=== PATIENT | female | born 1955 | race Caucasian/White ===

== ENCOUNTER → 2018-11-21 | Outpatient (CLI) | payer OTHER ==
--- NOTE | 2018-11-21 11:25 | XR ---
EXAMINATION TYPE: XR chest 2V DATE OF EXAM: 11/21/2018 COMPARISON: 02/02/2012 HISTORY: Monitoring for methotrexate. TECHNIQUE: Frontal and lateral views of the chest are obtained. FINDINGS: There is no focal air space opacity, pleural effusion, or pneumothorax seen. 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 The cardiac silhouette size is within normal limits. The osseous structures are intact. Mild mul tilevel degenerative changes of the spine are noted. IMPRESSION: No acute cardiopulmonary process. Underlying COPD.
== END | disposition home or self-care (01) ==
LOC: RADXRYALE 11:10
PROVIDERS: ATTEND Internal Medicine
DX: J44.9 Chronic obstructive pulmonary disease, unspecified (principal); Z51.81 Encounter for therapeutic drug level monitoring; Z79.899 Other long term (current) drug therapy
CPT/HCPCS: 71046

== ENCOUNTER → 2019-08-03 | Outpatient (CLI) | payer BC | END | disposition home or self-care (01) | LOC: LABWHC1 08:00 | PROVIDERS: ATTEND Internal Medicine | DX: E11.9 Type 2 diabetes mellitus without complications (principal) | CPT/HCPCS: 36415; 82947; 84681 ==

== ENCOUNTER → 2020-06-04 | Day surgery (SDC) | payer BC ==
[2020-06-04 09:44] VITALS: RESP 16
[2020-06-04 10:49] VITALS: BP 132/84; PULSE 74; TEMP 98.6
--- NOTE | 2020-06-04 13:50 | USB ---
EXAMINATION TYPE: US breast aspiration single RT DATE OF EXAM: 06/04/2020 HISTORY: Abnormal breast ultrasound FINDINGS: Maximal barrier technique was utilized. Hand hygiene achieved with soap and water and alco hol-based hand rub. The skin overlying a suitable path to the patient's breast cyst at the subareolar location approximately 10-11 o'clock position was localized with ultrasound and the overlying skin p repped and draped. Ultrasound was utilized with sterile technique. Lidocaine was used for local anes thesia. 18-gauge needle was advanced under ultrasound guidance and aspirated specimen clear fluid 1 c c. Following the procedure, hemostasis achieved and the patient is discharged in stable condition wit hout complication. The lesion did not persist post aspiration. IMPRESSION:STATUS POST ULTRASOUND GUIDED CYST ASPIRATION, without complication. THIS PROCEDURE IS PE RFORMED BY THE UNDERSIGNED.
== END ==
LOC: RADUSWWP 09:32
PROVIDERS: ATTEND Surgery
DX: N60.01 Solitary cyst of right breast (principal)
CPT/HCPCS: 76942; 19000; J2001

== ENCOUNTER → 2020-06-10 | Outpatient (CLI) | payer BC ==
[2020-06-10 19:30] LABS: Hepatitis B Core IgM Non-Reactive (Non-Reactive); Hepatitis B Surface AB- Quant 3.5 mIU/mL; Hepatitis B Surface Antibody Non-Reactive (Non-Reactive); Hepatitis B Surface Antigen Non-Reactive (Non-Reactive); Hepatitis C IgG Antibody Non-Reactive (Non-Reactive)
[2020-06-10 21:03] LABS: Cyclic Citrull Pep IgG Unit 3.2 U/mL; Cyclic Citrullinated Pep IgG POSITIVE (NEGATIVE)
== END | disposition home or self-care (01) ==
LOC: LABWHC1 10:57
PROVIDERS: ATTEND Internal Medicine Rheumatology
DX: M05.79 Rheumatoid arthritis with rheumatoid factor of multiple sites without organ or systems involvement (principal)
CPT/HCPCS: 36415; 86200; 86431; 86480; 86704; 86705; 86706; 86803; 87340

== ENCOUNTER → 2020-06-12 | Outpatient (CLI) | payer BC ==
[2020-06-12 12:01] VITALS: BP 135/81; PULSE 77; RESP 16; TEMP 97.9
--- NOTE | 2020-06-12 12:42 | P.GSHP ---
History of Present Illness H&P Date: 06/12/20 Chief Complaint: Abnormal right breast ultrasound Gloria is a 64-year-old white female seen in consultation for Dr. Hooker regarding a radiographic abnormality in her right breast. She had bilateral screening mammograms performed on [id number] which additional views of the left breast and bilateral ultrasound were recommended. Additional views of the left breast were felt to be incomplete and bilateral ultrasounds were performed. These were performed on [id number]. The left breast ultrasound was negative however the right breast ultrasound revealed a 0.9 x 0.5 cm lesion for which aspiration/[place] [id number]. At that time the patient was noted to have a small cystlike lesion 1 cm fluid was aspirated and it does not appear that this was sent for cytology. No clip was left at this aspiration. The patient does not feel any lumps masses or nodules in either breast. She does not complain of any nipple discharge or pain in her breast. As not had any history of any recent trauma or infection in her breast. She had an ultrasound guided biopsy in the past about 3 years ago and this was a cyst and fluid was removed. 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 Social History: Nicotine: Negative; 1/2 PPD since 17 Alcohol: Twice a year Drugs: Negative - Constitutional Constitutional: Reports sweats - EENT Comment: glaucoma Ears: deny: decreased hearing, tinnitus Ears, nose, mouth and throat: Denies headache, Denies sore throat - Breasts Breasts: bilateral: as per HPI - Cardiovascular Cardiovascular: Denies chest pain, Denies shortness of breath - Respiratory Respiratory: Denies cough, Denies 7 - Gastrointestinal Gastrointestinal: Denies abdominal pain, Denies diarrhea, Denies nausea, Denies vomiting - Genitourinary (Female) Genitourinary: Denies dysuria, Denies hematuria - Menstruation Menstruation: Reports post hysterectomy - Musculoskeletal Musculoskeletal: Reports as per HPI - Integumentary Comment: Sojrins syndrome - Neurological Neurological: Denies numbness, Denies weakness - Psychiatric Psychiatric: Denies anxiety, Denies depression - Endocrine Endocrine: Reports weight change - Hematologic/Lymphatic Comment: none - Allergic/Immunologic Allergic/Immunologic: Reports seasonal allergies Past Medical History Past Medical History: Diabetes Mellitus, Hyperlipidemia, Hypertension, Rheumatoid Arthritis (RA) History of Any Multi-Drug Resistant Organisms: None Reported Past Surgical History: Breast Surgery, Cholecystectomy, Hysterectomy, Orthopedic Surgery Additional Past Surgical History / Comment(s): right breast core biopsy benign, left breast benign excisional biopsy, arthroscopy x2 roz knees, 2 total knees right Past Anesthesia/Blood Transfusion Reactions: Postoperative Nausea & Vomiting (PONV) Past Psychological History: No Psychological Hx Reported Smoking Status: Former smoker Past Alcohol Use History: None Reported Past Drug Use History: None Reported Medications and Allergies Home Medications Medication Instructions Recorded Confirmed Type Atorvastatin [Lipitor] 80 mg PO HS 05/27/20 06/12/20 History Calcium Citrate 500 mg PO DAILY 05/27/20 06/12/20 History Carvedilol [Coreg] 6.25 mg PO BID 05/27/20 06/12/20 History Empagliflozin [Jardiance] 10 mg PO DAILY 05/27/20 06/12/20 History Lisinopril [Zestril] 10 mg PO DAILY 05/27/20 06/12/20 History Multivit-Min/FA/Lycopen/Lutein 1 each PO DAILY 05/27/20 06/12/20 History [Centrum Silver Tablet] Omeprazole 20 mg PO DAILY 05/27/20 06/12/20 History Pioglitazone [Actos] 45 mg PO DAILY 05/27/20 06/12/20 History sitaGLIPtin [Januvia] 100 mg PO DAILY 05/27/20 06/12/20 History Etanercept [Enbrel] 50 mg SQ Q7DAYS 06/12/20 06/12/20 History Allergies Allergy/AdvReac Type Severity Reaction Status Date / Time No Known Allergies Allergy Verified 06/12/20 11:56 Surgical - Exam Vital Signs Temp Pulse Resp BP Pulse Ox 97.9 F 77 16 135/81 97 06/12/20 11:59 06/12/20 11:59 06/12/20 11:59 06/12/20 11:59 06/12/20 11:59 BMI 24.8 - General well developed, well nourished, no distress - Eyes normal ocular movement - ENT no hearing loss, no congestion - Neck no masses, trachea midline - Respiratory normal expansion, normal respiratory effort, clear to percussion, clear to auscultation - Cardiovascular Rhythm: regular Heart Sounds: normal: S1, S2 - Abdomen Abdomen: soft, non tender, bowel sounds, no guarding, no rigid, no rebound - Integumentary normal turgor - Neurologic no disoriented, no combative - Musculoskeletal normal gait, normal posture - Psychiatric oriented to time, oriented to person, oriented to place, speech is normal, memor y intact breast exam: BRA 36A inspection: Grade 2/3 ptosis bilateral Palpation: Bypass: Multiple positional exam fibrocystic changes, mild ecchymosis from prior aspiration no hematoma and no infection no lesions of concern Right axilla: No adenopathy of concern Left breast: Multiple positional exam fibrocystic changes, no dominant masses or nodules of concern Left axilla: No adenopathy of concern Results Mammogram and ultrasound results reviewed Assessment and Plan Assessment: Impression: 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 Repeat right breast mammogram and ultrasound in 6 months with a physician visit at that time 2. We have discussed decreasing caffeine intake 3. Medical management of medical conditions Cc: Dr. Hooker We have discussed causes of fibrocystic breast changes. She is going to try to modiy her life style, decrease caffeine. encounter 40 minutes, > 50% of time in planning and counselling
== END | disposition home or self-care (01) ==
LOC: WWCWWP 11:43
PROVIDERS: ATTEND Surgery
DX: Z53.9 Procedure and treatment not carried out, unspecified reason (principal)

== ENCOUNTER 2020-11-09 12:17 | Emergency (ER) | payer BC ==
[2020-11-09 12:25] VITALS: RESP 18
[2020-11-09] MEDS ORDERED: Acetaminophen-Codeine 300-30mg TAB PO STA (12:39)
--- NOTE | 2020-11-09 12:58 | XR ---
EXAMINATION TYPE: XR pelvis AP view DATE OF EXAM: 11/09/2020 COMPARISON: NONE HISTORY: Pain The osseous structures are intact and the joint spaces are preserved. No acute fracture is seen. Vi sualized bowel gas pattern is nonspecific. Hypertrophic changes of the acetabulum to be associated w ith femoral acetabular impingement. Vascular calcifications in the pelvis. SI joints symmetric. Ostei tis pubis condensans noted. IMPRESSION: 1. No acute fracture.
--- NOTE | 2020-11-09 12:59 | XR ---
EXAMINATION TYPE: XR ankle complete LT DATE OF EXAM: 11/09/2020 COMPARISON: NONE HISTORY: Pain FINDINGS: Three views of the ankle demonstrate the ankle mortise to be intact and symmetric. There is soft tiss ue edema laterally with a nondisplaced fracture of the distal fibula. Tiny calcaneal spur. IMPRESSION: 1. Nondisplaced fracture lateral malleolus.
[2020-11-09] MEDS ORDERED: ACET/COD 300 MG/30 MG STARTER PACK 6 TAB BTL PO STA (13:22)
--- NOTE | 2020-11-09 13:22 | ED ---
Lower Extremity Injury HPI - General Chief Complaint: Extremity Injury, Lower Stated Complaint: Foot injury Time Seen by Provider: 11/09/20 12:33 Source: patient, RN notes reviewed Mode of arrival: wheelchair Limitations: no limitations - History of Present Illness Initial Comments: 64-year-old female presents emergency from chief complaint left ankle and tailbone pain. 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 Patient complains of lateral left ankle pain, fell striking her buttocks and complained the pain. Denies any head injury no loss conscious. - Related Data Home Medications Medication Instructions Recorded Confirmed Atorvastatin [Lipitor] 80 mg PO HS 05/27/20 06/12/20 Calcium Citrate 500 mg PO DAILY 05/27/20 06/12/20 Carvedilol [Coreg] 6.25 mg PO BID 05/27/20 06/12/20 Empagliflozin [Jardiance] 10 mg PO DAILY 05/27/20 06/12/20 Lisinopril [Zestril] 10 mg PO DAILY 05/27/20 06/12/20 Multivit-Min/FA/Lycopen/Lutein 1 each PO DAILY 05/27/20 06/12/20 [Centrum Silver Tablet] Omeprazole 20 mg PO DAILY 05/27/20 06/12/20 Pioglitazone [Actos] 45 mg PO DAILY 05/27/20 06/12/20 sitaGLIPtin [Januvia] 100 mg PO DAILY 05/27/20 06/12/20 Etanercept [Enbrel] 50 mg SQ Q7DAYS 06/12/20 06/12/20 Allergies Allergy/AdvReac Type Severity Reaction Status Date / Time No Known Allergies Allergy Verified 11/09/20 12:22 Review of Systems ROS Statement: Those systems with pertinent positive or pertinent negative responses have been documented in the HPI. ROS Other: All systems not noted in ROS Statement are negative. Past Medical History Past Medical History: Diabetes Mellitus, Hyperlipidemia, Hypertension, Rheumatoid Arthritis (RA) History of Any Multi-Drug Resistant Organisms: None Reported Past Surgical History: Breast Surgery, Cholecystectomy, Hysterectomy, Orthopedic Surgery Additional Past Surgical History / Comment(s): right breast core biopsy benign, left breast benign excisional biopsy, arthroscopy x2 roz knees, 2 total knees right Past Anesthesia/Blood Transfusion Reactions: Postoperative Nausea & Vomiting (PONV) Past Psychological History: No Psychological Hx Reported Smoking Status: Former smoker Past Alcohol Use History: Rare Past Drug Use History: None Reported General Exam Limitations: no limitations General appearance: alert, in no apparent distress Head exam: Present: atraumatic, normocephalic, normal inspection Eye exam: Present: normal appearance, PERRL, EOMI. Absent: scleral icterus, conjunctival injection, periorbital swelling Respiratory exam: Present: normal lung sounds bilaterally. Absent: respiratory distress, wheezes, rales, rhonchi, stridor Cardiovascular Exam: Present: regular rate, normal rhythm, normal heart sounds. Absent: systolic murmur, diastolic murmur, rubs, gallop, clicks Extremities exam: Present: other (Left lateral ankle there is swelling, tenderness palpation, neurovascular intact no foot tenderness no proximal tib- fib tenderness) Back exam: Present: full ROM, tenderness (Tenderness over the lower coccyx region) Neurological exam: Present: alert, oriented X3 Course Vital Signs 11/09/20 12:22 Temperature 97.4 F L Pulse Rate 98 Respiratory 18 Rate Blood Pressure 150/92 O2 Sat by Pulse 98 Oximetry Procedures - Orthopedic Splinting/Casting Injury #1 Side: left Lower Extremity Injury Location: short leg, ankle Lower Extremity Immobilizer: posterior splint, synthetic pre-padded splint Other Orthopedic Equipment: walker Medical Decision Making - Medical Decision Making Patient is a fracture of her left ankle was splinted and will follow-up with her orthopedic physician. Patient does have a walker at home that she will use. Disposition Clinical Impression: Fracture of distal end of left fibula Disposition: HOME SELF-CARE Condition: Stable Instructions (If sedation given, give patient instructions): Ankle Fracture (ED) Additional Instructions: Please return to the Emergency Department if symptoms worsen or any other concerns. Is patient prescribed a controlled substance at d/c from ED?: No Referrals: Toyin Hooker MD [Primary Care Provider] - 1-2 days Nate Barry DPM [Doctor of Osteopathic Medicine] - 1-2 days Time of Disposition: 13:22
[2020-11-09 13:37] VITALS: BP 149/89; PULSE 87; TEMP 97.6
== END 2020-11-09 13:34 | disposition home or self-care (01) ==
LOC: EC 12:17
DX: S82.831A Other fracture of upper and lower end of right fibula, initial encounter for closed fracture (principal); E11.9 Type 2 diabetes mellitus without complications; E78.5 Hyperlipidemia, unspecified; I10 Essential (primary) hypertension; M06.9 Rheumatoid arthritis, unspecified; Z90.49 Acquired absence of other specified parts of digestive tract; Z90.710 Acquired absence of both cervix and uterus; Z87.891 Personal history of nicotine dependence; Z79.84 Long term (current) use of oral hypoglycemic drugs; X50.1XXA Overexertion from prolonged static or awkward postures, initial encounter; Y99.0 Civilian activity done for income or pay
CPT/HCPCS: 29515; 72170; 99283

== ENCOUNTER → 2020-12-15 | Outpatient (CLI) | payer SELFPAY ==
--- NOTE | 2020-12-15 08:40 | USB ---
EXAMINATION TYPE: US breast limited RT DATE OF EXAM: 12/15/2020 COMPARISON: 06/04/2020 CLINICAL HISTORY: R92.8, Abnormal mammogram. Findings: In the right breast retroareolar region, there is a 0.8 x 0.6 x 0.9 cm lobulated anechoic lesion, con sistent with the previous cyst that was previously aspirated. IMPRESSION: No sonographic evidence for malignancy. BI-RADS 2, benign. Recommendation: Patient is due for her bilateral mammogram in March 2021.
--- NOTE | 2020-12-15 08:54 | MM ---
Reason for exam: follow-up at short interval from prior study. Last mammogram was performed 9 years and 8 months ago. History: Patient is postmenopausal. US breast aspiration single RT of the right breast, June 04, 2020. Cancelled Right US Needle Biopsy of the right breast, May 06, 2006. Benign excisional biopsy of the left breast. Took hormonal contraceptives for 1 year beginning at age 21. Took estrogen for 1 year beginning at age 45. Physical Findings: Nurse did not find any significant physical abnormalities on exam. MG Diagnostic Mammo RT w CAD CC and MLO view(s) were taken of the right breast. Prior study comparison: April 23, 2020, mammogram. July 13, 2018, mammogram. There are scattered fibroglandular densities. Right asymmetries. No change. Right biopsy clip. These results were verbally communicated with the patient and result sheet given to the patient on 12/15/20. ASSESSMENT: Incomplete: need additional imaging evaluation, BI-RAD 0 RECOMMENDATION: Ultrasound of the right breast. (follow up as per prior report)
== END | disposition home or self-care (01) ==
LOC: RADMAMWWP 07:35
PROVIDERS: ATTEND Surgery
DX: N64.89 Other specified disorders of breast (principal); R92.8 Other abnormal and inconclusive findings on diagnostic imaging of breast; Z78.0 Asymptomatic menopausal state
CPT/HCPCS: 77065

== ENCOUNTER → 2021-02-19 | Outpatient (CLI) | payer BC ==
[2021-02-19 14:08] VITALS: BP 144/75; PULSE 82; RESP 18; TEMP 97.9
--- NOTE | 2021-02-19 14:25 | P.PN ---
Subjective Progress Note Date: 02/19/21 Principal diagnosis: breast cyst Gloria is a 65-year-old white female who presents for breast examination. She underwent a bilateral mammogram in March 2020 after which it was recommended that she have an aspiration of a cystic lesion in the right breast. Cystic area seemed to recur in November. She has a repeat right breast diagnostic mammogram on [id number]. An ultrasound was recommended following this an ultrasound revealed a 0.8 x 0.9 cm anechoic lesion consistent with previous cyst which was aspirated. This was felt to be benign BIRADS 2 and bilateral mammogram in March was recommended. The patient does not feel any lumps masses or nodules of concern in either breast. She does not complain of any nipple discharge or skin changes. 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 Social History: Nicotine: Negative; (1/2 PPD since 17 stopped three years ago) Alcohol: Twice a year Drugs: Negative - Constitutional Constitutional: Reports sweats - EENT Comment: glaucoma Ears: deny: decreased hearing, tinnitus Ears, nose, mouth and throat: Denies headache, Denies sore throat - Breasts Breasts: bilateral: as per HPI - Cardiovascular Cardiovascular: Denies chest pain, Denies shortness of breath - Respiratory Respiratory: Denies cough - Gastrointestinal Gastrointestinal: Denies abdominal pain, Denies diarrhea, Denies nausea, Denies vomiting - Genitourinary (Female) Genitourinary: Denies dysuria, Denies hematuria - Menstruation Menstruation: Reports post hysterectomy - Musculoskeletal Musculoskeletal: Reports as per HPI - Integumentary Comment: Sojrins syndrome - Neurological Neurological: Denies numbness, Denies weakness - Psychiatric Psychiatric: Denies anxiety, Denies depression - Endocrine Endocrine: Reports weight change - Hematologic/Lymphatic Comment: none - Allergic/Immunologic Allergic/Immunologic: Reports seasonal allergies Objective - Vital Signs Vital signs: Vital Signs Temp 97.9 F 02/19/21 14:05 Pulse 82 02/19/21 14:05 Resp 18 02/19/21 14:05 BP 144/75 02/19/21 14:05 Pulse Ox 95 02/19/21 14:05 Intake & Output 02/18/21 02/19/21 02/19/21 18:59 06:59 18:59 Weight 63.503 kg - Exam BMI 24.8 - Constitutional General appearance: Present: cooperative - EENT Eyes: Present: EOMI ENT: Present: hearing grossly normal - Neck Neck: Present: normal ROM - Respiratory Respiratory: bilateral: CTA - Cardiovascular Rhythm: regular Heart sounds: normal: S1, S2 - Gastrointestinal General gastrointestinal: Present: soft - Integumentary Integumentary: Present: normal turgor - Musculoskeletal Musculoskeletal: Present: gait normal - Psychiatric Psychiatric: Present: A&O x's 3, appropriate affect, intact judgment & insight - Additional findings Additional findings: Breast Exam: BRA: 36A inspection: Bilateral grade 1/2 ptosis Palpation: Right breast: Multi-positional exam dense fibroglandular/fibrocystic tissue no dominant masses or nodules of concern Right axilla: No adenopathy of concern Left breast: Multi-positional exam done/fibroglandular fibrocystic tissue of dominant masses or nodules of concern Left axilla: No adenopathy of concern Assessment and Plan Assessment: Impression: 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 Repeat bilateral mammogram in March with an ultrasound of the right breast as well 2. Patient is going to stop caffeine intake 3. Patient to call sooner if any questions or concerns CC: Dr. Hooker
== END ==
LOC: WWCWWP 13:35
PROVIDERS: ATTEND Surgery
DX: N60.11 Diffuse cystic mastopathy of right breast (principal); N60.12 Diffuse cystic mastopathy of left breast; E11.9 Type 2 diabetes mellitus without complications; M06.9 Rheumatoid arthritis, unspecified; I10 Essential (primary) hypertension; M35.00 Sjogren syndrome, unspecified

== ENCOUNTER 2021-04-03 07:23 | Day surgery (SDC) | payer BC ==
[2021-04-01 11:12] VITALS: BMI 24.7
[~2021-04-03 07:23] MED LIST: DEXAMETHASONE SOD PHOSPHATE 4 MG/ML 1 ML VIAL IV ONE; HYDROmorphone 0.5 MG/0.5 ML SYRINGE IVP PRN; LACTATED RINGERS 1,000 ML IV SCH; MIDAZOLAM 2 MG/2 ML VIAL IV PRN; ONDANSETRON 4 MG/2 ML VIAL IVP ONE; SCOPOLAMINE 1.5MG/72HR PATCH TRANSDERM ONE
[2021-04-03] MEDS ORDERED: LIDOCAINE 1% (10MG/ML) FOR IV START INTRADERMA ONE (07:59)
[2021-04-03 08:13] LABS: Glucose,Whole Blood 108 mg/dL (75-99)
[2021-04-03] MEDS ORDERED: MIDAZOLAM 2 MG/2 ML VIAL IVP ONE (08:25)
[2021-04-03] MEDS ORDERED: fentaNYL (PF) 50 MCG/ML 2 ML AMP IVP ONE (08:25)
[2021-04-03] MEDS ORDERED: LIDOCAINE 1% INJ 10MG/ML (20 ML MDV) ONE (09:33)
[2021-04-03] MEDS ORDERED: fentaNYL (PF) 50 MCG/ML 2 ML AMP ONE (09:33)
[2021-04-03] MEDS ORDERED: ROPIVACAINE 5 MG/ML 30 ML VIAL ONE (09:33)
[2021-04-03] MEDS ORDERED: ePHEDrine SULFATE/0.9% NACL/PF 50 MG/5 ML SYRINGE IV ONE (09:33)
[2021-04-03] MEDS ORDERED: diphenhydrAMINE 50 MG/ML 1 ML VIAL ONE (09:33)
[2021-04-03] MEDS ORDERED: MIDAZOLAM 2 MG/2 ML VIAL ONE (09:33)
[2021-04-03] MEDS ORDERED: PROPOFOL 10 MG/ML 20 ML VIAL IV ONE (09:33)
[2021-04-03] MEDS ORDERED: PHENYLEPHRINE-0.9% NACL SYG 1,000 MCG/10 ML SYRINGE ONE (09:33)
[2021-04-03] MEDS ORDERED: LACTATED RINGERS 1,000 ML IV ONE (10:33)
--- NOTE | 2021-04-03 11:48 | P.OP ---
Date of Procedure: 04/03/21 Preoperative Diagnosis: 1. Posterior tibial tendinitis left foot 2. Left foot deformity 3. Gastroc equinus left Postoperative Diagnosis: 1. Same 2. Same 3. Same Procedure(s) Performed: 1. Flexor digitorum longus tendon transfer left foot 2. Haque calcaneal osteotomy left foot 2. Gastroc recession left leg Implants: 10 mm x 18 mm x 18 mm Haque osteotomy allograft Novastep 2 hole compression plate Arthrex 5.5 mm x 15 mm interference screw Anesthesia: MARYSOL Surgeon: Nate Barry Estimated Blood Loss (ml): 5 Pathology: none sent Condition: stable Disposition: PACU Indications for Procedure: Pain and dysfunction of the posterior tibial tendon with associated pronation deformity of the left foot. Unresponsive to conservative treatment Description of Procedure: Prior to the patient being brought to the operating room, anesthesia administered a nerve block on the left lower extremity using ultrasonic as a guidance and having the patient under mild sedation. Then the patient was brought into the operative room and placed on the table in supine position. Timeout was taken to confirm correct patient identifiers, correct procedure, and correct site of surgery. When the room was in agreement the patient was induced and placed under general anesthesia. A tourniquet was placed the left thigh and a wedge underneath the left hip to internally rotate the left leg. The left leg was then prepped and draped in usual manner. The leg was exsanguinated with an Esmarch bandage the knee flexed and the thigh tourniquet inflated to 250 mmHg. Attention was directed first over the lateral aspect of the left hindfoot where a linear incision was made over the anterior process of the calcaneus and the calcaneocuboid joint. The incision was deepened down to the saphenous tissue careful to identify, avoid, and retract any neurovascular structures and cauterize any bleeding vessels. Continued dissection was carried down to the deep fascia overlying the peroneal tendons. The deep fascia was incised superior to the peroneal tendons and subperiosteal dissection was performed to lift of tissue flap which contained the peroneal tendons off the anterior process of the calcaneus and expose the area where the osteotomy was to be performed. The soft tissues reflected dorsally and plantarly to expose the anterior process while leaving the capsular attachments of the calcaneocuboid joint intact. The joint was identified and then aligned made between 10 and 12 mm proximal to the location of the osteotomy. The osteotomy was performed straight dorsal to plantar and straight lateral to medial through the anterior process the calcaneus. An osteotome was inserted to complete the osteotomy into distracted pieces. Guidewires were placed on either side of the osteotomy and then a distractor placed over the pins and then the distractor was opened to appropriately a size the correct bone graft. Both 8 mm and 10 mm sizes were inserted. It was felt that the 10 mm was most appropriate given the amount of correction and the stability of the subtalar joint. So the sizer was removed and then the Arthrex 10 mm x 18 mm x 18 mm allograft was inserted and carefully impacted until it seated between the osteotomy segments. Fluoroscopy was used to make sure that the position was correct. Did not protrude excessively dorsally. Anterior process did not sublux on the calcaneocuboid joint. The distractor guidewires were removed and then a 2 hole plate was placed laterally across the graft. The proximal compression hole was drilled and then inserted first and then the second screws and the anterior process which of the combination compression locking screw. Fluoroscopic imaging showed that the graft was properly placed as was the plate and screws. And the correction reduction remained without any dorsal displacement of the anterior process. The wound is irrigated thoroughly with saline. Deep closure done with 2-0 Vicryl. Subcu closure done for Monocryl. Skin closure done with gilberto. The wedge was removed from the hip to actually rotate the left leg and then attention was directed to the posterior medial aspect of the leg just distal to calf muscle. A linear incision was made and deepened under the subcu tissue careful to identify, avoid, and retract any neurovascular structures and cauterize any bleeding vessels. Blunt dissection was continued through the saphenous layer down to the deep fascia. The deep fascia was sharply incised and then blunt dissection was skin continued to separate the tissue from the underlying gastroc aponeurosis. The finger was inserted between the aponeurosis of the fascia to separate it and freely mobilize it. Then a transverse incision was made through the aponeurosis taking care to minimize as much trauma as possible to the underlying muscle belly. This is done straight lateral to medial. Once completed ankle was dorsiflexed and a 1-1/2-2 cm gap appeared between the segments. The area was palpated to make sure that there was not any remaining sections that were still attached and none were. The wound is thoroughly irrigated. Subcu closure was done with 4-0 Monocryl. Skin closure done with gilberto. Then attention was directed over the medial aspect of the midfoot. A linear incision was made along the course of the posterior tibial tendon to its insertion on the navicular. The incision was deepened down to the saphenous t issue careful to identify, avoid, and retract any neurovascular structures and cauterize any bleeding vessels. Blunt dissection was continued down to the sheath overlying the posterior tibial tendon. Sheath was incised and the tendon sheath opened to expose the attachment of the tendon on the navicular. Then this another incision was made on the posterior medial ankle superior to the medial malleolus. It was deepened down to the subcutaneous layer careful to identify, avoid, and retract any neurovascular structures and cauterize any bleeding vessels. Blunt dissection was taken down to the retinaculum overlying the posterior tibial and flexor digitorum longus tendons. The retinaculum was entered and both tendons were and mobilized. A [id number] anastomosis was completed between the posterior tibial tendon and the flexor digitorum longus tendon then the posterior tibial tendon was completely transected distal tibia [id number] anastomosis and then through the more dis kelly midfoot incision was pulled through and brought into the surgical field. At that time the posterior tibial tendon was completely dissected and freed from surrounding soft tissue as well as its navicular attachment and removed from the surgical field. The tissue underlying the posterior tibial tendon was incised to expose the flexor digitorum longus which was then traced as far distally as possible. Then the flexor digitorum longus tendon was cut as far distally as possible and the tendon and delivered into the surgical field. A whipstitch was applied to the distal part of the tendon. The total stitched areas approximately 15 mm. A guidewire for the cannulated reamer was then placed in the medial aspect of the navicular plantar to the midline and then under direct fluoroscopy was advanced distally and laterally into the talar body avoiding both the talonavicular joints and the naviculocuneiform joints. Then a 6 mm was inserted over the wire and reamed to a depth of 15 mm. The reamer and guide were removed. The distal stump of the flexor digitorum longus tendon was then secured in the project facilitator for the interference screw. Then with the foot in neutral position the tendon and project facilitator were placed within the drill hole and advanced as deep as possible and then the interference screw was advanced into the bone tunnel locking the tendon in place. The suture ends were cut. The tendon was checked for security and was firmly within the bone tunnel. It also showed proper tensioning. Both wounds were thoroughly irrigated with normal saline. Deep closure in the distal incision was done with 2-0 Vicryl. Subcu closure done with 4-0 Monocryl on both incisions. And then both incisions were closed with stainless steel gilberto. Jumpstart dressings were applied over all the incisions and a bulky dry dressing applied to the left foot, ankle, and leg. The tourniquet was released and capillary refill return to all digits on the left foot. The patient was then placed in a well-padded, well molded posterior mold/sugar tong splint. The splint was held to keep the leg and ankle in neutral position until it dried. Then the patient had her anesthesia reversed and she was taken recovery vital signs stable.
[2021-04-03 11:53] VITALS: TEMP 96.9
[2021-04-03 12:33] VITALS: BP 123/70; PULSE 89; RESP 18
--- NOTE | 2021-04-03 16:04 | P.ANPRN ---
Procedure Note - Anesthesia - Nerve Block Performed Left Adductor Canal Single Time Out Performed: Yes Date of Procedure: 04/03/21 Procedure Start Time: 08:32 Procedure Stop Time: 08:37 Location of Patient: PreOp Indication: Acute Post-Operative Pain, Dx/Pain Location, Requested by Surgeon Specifically requested for management of pain by DrSeamus: aNte Barry Sedation Type: Sedate with meaningful contact maintained Preparation: Sterile Prep Position: Supine Catheter: None Needle Types: Facet Needle Gauge: 21 Ultrasound used to visualize needle placement: Yes Ultrasound used to observe medication spread: Yes Injectate: 0.5% Ropivacaine (see comment for volume) Blood Aspirated: No Pain Paresthesia on Injection Noted: No Resistance on Injection: Normal Image Stored and Saved: Yes Events: Uneventful and Well Tolerated (20cc 0.5% Ropivacaine)
--- NOTE | 2021-04-03 16:05 | P.ANPRN ---
Procedure Note - Anesthesia - Nerve Block Performed Left Popliteal Single Time Out Performed: Yes Date of Procedure: 04/03/21 Procedure Start Time: 08:38 Procedure Stop Time: 08:42 Location of Patient: PreOp Indication: Acute Post-Operative Pain, Dx/Pain Location, Requested by Surgeon Specifically requested for management of pain by DrSeamus: Nate Barry Sedation Type: Sedate with meaningful contact maintained Preparation: Sterile Prep Position: Supine Catheter: None Needle Types: Facet Needle Gauge: 21 Ultrasound used to visualize needle placement: Yes Ultrasound used to observe medication spread: Yes Injectate: 0.5% Ropivacaine (see comment for volume) Blood Aspirated: No Pain Paresthesia on Injection Noted: No Resistance on Injection: Normal Image Stored and Saved: Yes Events: Uneventful and Well Tolerated (20cc 0.25% Ropivacaine)
== END 2021-04-03 13:45 | disposition home or self-care (01) ==
LOC: OR 07:23
PROVIDERS: ATTEND Podiatrist
DX: M76.822 Posterior tibial tendinitis, left leg (principal); M21.962 Unspecified acquired deformity of left lower leg; M62.462 Contracture of muscle, left lower leg; I10 Essential (primary) hypertension; E78.5 Hyperlipidemia, unspecified; E11.9 Type 2 diabetes mellitus without complications; K21.9 Gastro-esophageal reflux disease without esophagitis; H40.9 Unspecified glaucoma; Z87.891 Personal history of nicotine dependence; M06.9 Rheumatoid arthritis, unspecified; K30 Functional dyspepsia; Z97.3 Presence of spectacles and contact lenses; Z96.651 Presence of right artificial knee joint; Z98.890 Other specified postprocedural states; Z83.3 Family history of diabetes mellitus; Z82.49 Family history of ischemic heart disease and other diseases of the circulatory system; Z79.1 Long term (current) use of non-steroidal anti-inflammatories (NSAID); Z79.84 Long term (current) use of oral hypoglycemic drugs; Z79.899 Other long term (current) drug therapy
CPT/HCPCS: 64447; 64445; 76942; 27691; 28300; 27687; C1713; J2250; J1200; J1100; J0690; J2405; J2001; J3010; J2795; J2370; J2704

== ENCOUNTER → 2021-05-18 | Outpatient (CLI) | payer BC ==
--- NOTE | 2021-05-19 12:17 | MM ---
Reason for exam: follow-up at short interval from prior study. Last mammogram was performed 5 months ago. History: Patient is postmenopausal. US breast aspiration single RT of the right breast, June 04, 2020. Cancelled Right US Needle Biopsy of the right breast, May 06, 2006. Benign excisional biopsy of the left breast. Took hormonal contraceptives for 1 year beginning at age 21. Took estrogen for 1 year beginning at age 45. Physical Findings: Nurse Summary: 0.5 x 0.5cm nodule in the right breast at 8 o'clock/retroareolar (nurse ts). MG 3D Diag Mammo W/Cad LEA Bilateral CC and MLO view(s) were taken. Prior study comparison: December 15, 2020, right breast MG diagnostic mammo RT w CAD. April 23, 2020, mammogram. The breast tissue is heterogeneously dense. This may lower the sensitivity of mammography. Previous mammotome biopsy in the right breast. Stable 1.1cm circumscribed isodense to low density mass subareolar right breast. Nurse palpable marker 8 o'clock right periareolar. These results were verbally communicated with the patient and result sheet given to the patient on 05/18/21. ASSESSMENT: Incomplete: need additional imaging evaluation, BI-RAD 0 RECOMMENDATION: Ultrasound of the right breast.
--- NOTE | 2021-05-19 12:19 | USB ---
Reason for exam: additional evaluation requested from abnormal screening. History: Patient is postmenopausal. US breast aspiration single RT of the right breast, June 04, 2020. Cancelled Right US Needle Biopsy of the right breast, May 06, 2006. Benign excisional biopsy of the left breast. Took hormonal contraceptives for 1 year beginning at age 21. Took estrogen for 1 year beginning at age 45. US Breast RT Right complete breast ultrasound includes all four quadrants, the retroareolar region and axilla. Finding demonstrates a 0.8 x 5.2 x 0.7cm cystic lesion at 11 o'clock, unchanged. Continued mammographic follow up recommended. These results were verbally communicated with the patient and result sheet given to the patient on 05/18/21. ASSESSMENT: Probably benign, BI-RAD 3 RECOMMENDATION: Follow-up diagnostic mammogram of the right breast in 6 months.
== END | disposition home or self-care (01) ==
LOC: RADMAMWWP 13:39
PROVIDERS: ATTEND Surgery
DX: N63.13 Unspecified lump in the right breast, lower outer quadrant (principal); N60.01 Solitary cyst of right breast
CPT/HCPCS: 77062; 77066

== ENCOUNTER → 2021-05-28 | Outpatient (CLI) | payer BC ==
[2021-05-28 09:32] VITALS: BP 127/77; PULSE 78; RESP 18; TEMP 98.3
--- NOTE | 2021-05-28 09:56 | P.PN ---
Subjective Progress Note Date: 05/28/21 Principal diagnosis: Breast cyst breast cyst Gloria is a 65-year-old white female who presents for breast examination. She underwent a bilateral mammogram in March 2020 after which it was recommended that she have an aspiration of a cystic lesion in the right breast. This was aspirated but not sent for cytology. Cystic area seemed to recur in November. She has a repeat right breast diagnostic mammogram on . An ultrasound was recommended following this an ultrasound revealed a 0.8 x 0.9 cm anechoic lesion consistent with previous cyst which was aspirated. This was felt to be benign BIRADS 2 and bilateral mammogram in March was recommended. The patient does not feel any lumps masses or nodules of concern in either breast. She does not complain of any nipple discharge or skin changes. She states she does have nodularity in her right breast near the 12 o'clock position. She does not complain of any other lumpsor nodules of concern in either breast. She had a bilateral mammogram and a right breast ultrasound performed on [id number]. This revealed a 0.8 x 0.7 cm cystic lesion at 11:00 unchanged. The finding was felt to be probably benign BIRADS 3 and follow-up mammogram of the right breast in 6 months was recommended. 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 Social History: Nicotine: Negative; (1/2 PPD since 17 stopped three years ago) Alcohol: Twice a year Drugs: Negative - Constitutional Constitutional: Reports sweats - EENT Comment: glaucoma Ears: deny: decreased hearing, tinnitus Ears, nose, mouth and throat: Denies headache, Denies sore throat - Breasts Breasts: bilateral: as per HPI - Cardiovascular Cardiovascular: Denies chest pain, Denies shortness of breath - Respiratory Respiratory: Denies cough - Gastrointestinal Gastrointestinal: Denies abdominal pain, Denies diarrhea, Denies nausea, Denies vomiting - Genitourinary (Female) Genitourinary: Denies dysuria, Denies hematuria - Menstruation Menstruation: Reports post hysterectomy - Musculoskeletal Musculoskeletal: Reports as per HPI - Integumentary Comment: Sojrins syndrome - Neurological Neurological: Denies numbness, Denies weakness - Psychiatric Psychiatric: Denies anxiety, Denies depression - Endocrine Endocrine: Reports weight change - Hematologic/Lymphatic Comment: none - Allergic/Immunologic Allergic/Immunologic: Reports seasonal allergies Objective - Vital Signs Vital signs: Vital Signs Temp 98.3 F 05/28/21 09:29 Pulse 78 05/28/21 09:29 Resp 18 05/28/21 09:29 BP 127/77 05/28/21 09:29 Pulse Ox 96 05/28/21 09:29 Intake & Output 05/27/21 05/28/21 05/28/21 18:59 06:59 18:59 Weight 61.235 kg - Constitutional General appearance: Present: cooperative - EENT Eyes: Present: EOMI ENT: Present: hearing grossly normal - Neck Neck: Present: normal ROM - Respiratory Respiratory: bilateral: CTA - Cardiovascular Rhythm: regular Heart sounds: normal: S1, S2 - Gastrointestinal General gastrointestinal: Present: soft - Integumentary Integumentary: Present: normal turgor - Musculoskeletal Musculoskeletal: Present: gait normal - Psychiatric Psychiatric: Present: A&O x's 3, appropriate affect, intact judgment & insight - Additional findings Additional findings: Breast examination: Broad: 30 6A Inspection: Grade 2 ptosis Palpation: Right breast: Multiple positional exam dense fibroglandular tissue no dominant masses or nodules of concern Right axilla: No adenopathy of concern Left breast: Multiple positional exam dense fibroglandular tissue/fibrocystic changes no dominant masses or nodules of concern Left axilla: No adenopathy of concern Assessment and Plan Assessment: Impression: Fibrocystic breast changes Recent right breast mammogram and ultrasound recommend repeat right breast mammogram in 6 months Plan: Fibrocystic breast changes Right breast mammogram 6 months with physician exam at that time CC: Dr. Hooker
== END ==
LOC: WWCWWP 09:06
PROVIDERS: ATTEND Surgery
DX: N60.11 Diffuse cystic mastopathy of right breast (principal); E11.9 Type 2 diabetes mellitus without complications; M06.9 Rheumatoid arthritis, unspecified; I10 Essential (primary) hypertension

== ENCOUNTER → 2021-11-18 | Outpatient (CLI) | payer BC ==
--- NOTE | 2021-11-18 08:18 | MM ---
Reason for Exam: Follow-up at short interval from prior study. Last screening mammogram was performed 6 month(s) ago. Patient History: Menarche at age 15. First Full-Term at age 23. Left ovary removed at age 45. Right ovary removed at age 45. Hysterectomy at age 45. Postmenopausal. Estrogen, starting at age 45 for 1 year. Hormonal Contraceptives, starting at age 21 for 1 year. Benign Excisional Biopsy on the left side. 06/04/2020, Cyst Aspiration on the Right side. 05/06/2006, Cancelled Right US Needle Biopsy on the right side. Risk Values: Chel 5 year model risk: 1.6%. NCI Lifetime model risk: 6.3%. Film Views: Right CC views were taken. Right MLO views were taken. Right XCCL views were taken. Prior Study Comparison: 04/23/2020 Screening Mammogram, Unknown. 12/15/2020 Right Diagnostic Mammogram, [facility]. 05/18/2021 Bilateral Diagnostic Mammogram, [facility]. Tissue Density: Right: The breast tissue is heterogeneously dense. This may lower the sensitivity of mammography. Findings: Analyzed By CAD. CLIP IN RT BR....HX OF CYST ASP 2019, RT US BX 2005 There is persistence of the nodular density in the left mid breast. Appears unchanged from comparison. Overall Assessment: Benign, BI-RAD 2 Management: Screening Mammogram of both breasts in 6 months. A clinical breast exam by your physician is recommended on an annual basis and results should be correlated with mammographic findings. This exam should not preclude additional follow-up of suspicious palpable abnormalities. Results were given to the patient verbally at the time of exam. Electronically signed and approved by: Enrique Mathis D.O. Radiologis
== END | disposition home or self-care (01) ==
LOC: RADMAMWWP 07:39
PROVIDERS: ATTEND Surgery
DX: R92.8 Other abnormal and inconclusive findings on diagnostic imaging of breast (principal); Z78.0 Asymptomatic menopausal state; Z90.721 Acquired absence of ovaries, unilateral
CPT/HCPCS: 77065

== ENCOUNTER → 2022-03-22 | Outpatient (CLI) | payer MEDICARE, OTHER ==
--- NOTE | 2022-03-23 09:25 | MM ---
Reason for Exam: Screening (asymptomatic). Last screening mammogram was performed 10 month(s) ago. Patient History: Menarche at age 15. First Full-Term at age 23. Left ovary removed at age 45. Right ovary removed at age 45. Hysterectomy at age 45. Postmenopausal. Estrogen, starting at age 45 for 1 year. Hormonal Contraceptives, starting at age 21 for 1 year. Benign Excisional Biopsy on the left side. 06/04/2020, Cyst Aspiration on the Right side. 05/06/2006, Cancelled Right US Needle Biopsy on the right side. Risk Values: Chel 5 year model risk: 1.6%. NCI Lifetime model risk: 6.1%. Prior Study Comparison: 12/15/2020 Right Diagnostic Mammogram, [facility]. 05/18/2021 Bilateral Diagnostic Mammogram, [facility]. 11/18/2021 Right MG diagnostic mammo RT w CAD, [facility]. Tissue Density: The breast tissue is heterogeneously dense. This may lower the sensitivity of mammography. Findings: Analyzed By CAD. There is no suspicious group of microcalcifications or new suspicious mass in either breast. Overall Assessment: Benign, BI-RAD 2 Management: Screening Mammogram of both breasts in 1 year. A clinical breast exam by your physician is recommended on an annual basis and results should be correlated with mammographic findings. Electronically signed and approved by: Rashel White M.D. Radiologis
== END | disposition home or self-care (01) ==
LOC: RADMAMWWP 10:07
PROVIDERS: ATTEND Surgery
DX: Z12.31 Encounter for screening mammogram for malignant neoplasm of breast (principal); Z78.0 Asymptomatic menopausal state
CPT/HCPCS: 77063; 77067

== ENCOUNTER → 2022-04-08 | Outpatient (CLI) | payer MEDICARE, OTHER ==
[2022-04-08 09:03] VITALS: BP 148/83; PULSE 81; RESP 16; TEMP 98
--- NOTE | 2022-04-08 09:36 | P.PN ---
Subjective Progress Note Date: 04/08/22 Principal diagnosis: fibrocystic breast disease Gloria is a 66-year-old white female who presents for breast examination. She underwent a bilateral mammogram in March 2020 after which it was recommended that she have an aspiration of a cystic lesion in the right breast. This was aspirated but not sent for cytology. Cystic area seemed to recur in November. She has a repeat right breast diagnostic mammogram on . An ultrasound was recommended following this an ultrasound revealed a 0.8 x 0.9 cm anechoic lesion consistent with previous cyst which was aspirated. This was felt to be benign BIRADS 2 and bilateral mammogram in March was recommended. The patient does not feel any lumps masses or nodules of concern in either breast. She does not complain of any nipple discharge or skin changes. She states she does have nodularity in her right breast near the 12 o'clock position. She does not complain of any other lumps or nodules of concern in either breast. She had a bilateral mammogram and a right breast ultrasound performed on [id number]. This revealed a 0.8 x 0.7 cm cystic lesion at 11:00 unchanged. The finding was felt to be probably benign BIRADS 3 and follow-up mammogram of the right breast in 6 months was recommended. A right breast mammogram was done on 11-18-21 which was BIRAD 2 and repeat bilateral in 6 months recommended. Bilateral mammogram on 03-22-22 BIRAD 2. Doesn't know new changes in her breast. She is not complaining of any new lumps masses or nodules in either breast. She does have some persistent nodularity in the right breast near the 12 o'clock position which has not changed. 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 Social History: Nicotine: Negative; (1/2 PPD since 17 stopped three years ago) Alcohol: Twice a year Drugs: Negative - Constitutional Constitutional: Reports sweats - EENT Comment: glaucoma Ears: deny: decreased hearing, tinnitus Ears, nose, mouth and throat: Denies headache, Denies sore throat - Breasts Breasts: bilateral: as per HPI - Cardiovascular Cardiovascular: Denies chest pain, Denies shortness of breath - Respiratory Respiratory: Denies cough - Gastrointestinal Gastrointestinal: Denies abdominal pain, Denies diarrhea, Denies nausea, Denies vomiting - Genitourinary (Female) Genitourinary: Denies dysuria, Denies hematuria - Menstruation Menstruation: Reports post hysterectomy - Musculoskeletal Musculoskeletal: Reports as per HPI - Integumentary Comment: Sojrins syndrome - Neurological Neurological: Denies numbness, Denies weakness - Psychiatric Psychiatric: Denies anxiety, Denies depression - Endocrine Endocrine: Reports weight change - Hematologic/Lymphatic Comment: none - Allergic/Immunologic Allergic/Immunologic: Reports seasonal allergies Objective - Vital Signs Vital signs: Vital Signs Temp 98.0 F 04/08/22 08:59 Pulse 81 04/08/22 08:59 Resp 16 04/08/22 08:59 BP 148/83 04/08/22 08:59 Pulse Ox 97 04/08/22 08:59 FiO2 Intake & Output 04/07/22 04/08/22 04/08/22 18:59 06:59 18:59 Weight 61.235 kg - Exam BMI: 23.9 - Constitutional General appearance: Present: cooperative - EENT Eyes: Present: EOMI ENT: Present: hearing grossly normal - Neck Neck: Present: normal ROM - Respiratory Respiratory: bilateral: CTA - Cardiovascular Heart sounds: normal: S1, S2 - Gastrointestinal General gastrointestinal: Present: soft - Integumentary Integumentary: Present: normal turgor - Musculoskeletal Musculoskeletal: Present: gait normal - Psychiatric Psychiatric: Present: A&O x's 3, appropriate affect, intact judgment & insight - Additional findings Additional findings: Breast examination: Broad: 36A Inspection: Grade 2 ptosis Palpation: Right breast: Multiple positional exam dense fibroglandular tissue no dominant masses or nodules of concern Right axilla: No adenopathy of concern Left breast: Multiple positional exam dense fibroglandular tissue/fibrocystic changes no dominant masses or nodules of concern Left axilla: No adenopathy of concern Assessment and Plan Assessment: Assessment and Plan Assessment: Impression: Fibrocystic breast changes Plan: Fibrocystic breast changes bilateral mammogram in 1 year CC: Dr. Hooker Additional CC's: Toyin Hooker
== END ==
LOC: WWCWWP 08:47
PROVIDERS: ATTEND Surgery
DX: N60.11 Diffuse cystic mastopathy of right breast (principal); E11.9 Type 2 diabetes mellitus without complications; I10 Essential (primary) hypertension; M06.9 Rheumatoid arthritis, unspecified; Z87.891 Personal history of nicotine dependence

== ENCOUNTER → 2022-05-12 | Outpatient (CLI) | payer MEDICARE, OTHER ==
[2022-05-12 08:55] VITALS: BP 137/74; PULSE 78; RESP 18; TEMP 98.4
--- NOTE | 2022-05-12 14:40 | P.PAINPG ---
PQRS Measure Charge Sheet Comment: HISTORY OF PRESENT ILLNESS: 66 yr old female as a referral from [facility] presents today w severe and chronic R hip pain secondary to R Sacroiliitis for evaluation. Pt states pain level is at 8/10 in intensity, constant, localized in the R hip, sharp in character w shooting pain towards the R inner thigh. Pain is provoked by sitting for periods of 15 min or more. Pain is alleviated by PT 6 yrs ago and will start after returning from [place] in 2 w2ks, home exercise regimen, massage x 1 time which was ineffective, chiropractic treatments 5 yrs ago, heat, meds (Aleve, Voltaren gel), repositioning and rest. PMH: Diabetes Mellitus, Hyperlipidemia, HTN, RA PSH: L Calcaneal Osteotopmy (2020), BL Breast Excisional Biopsies, Cholecystectomy, Hysterectomy, BL Knee Arthroscopies, R Knee Total x2 SH: Former tobacco user, FH: Non contributory All: NKDA Meds: See list REVIEW OF ORGAN SYSTEMS: CONSTITUTIONAL: No fevers or chills. No recent weight loss. NEUROLOGICAL: + numbness and tingling along the distal extremities. No seizure disorders or headaches. MUSCULOSKELETAL: + pain PSYCHIATRIC: Denies current depression or suicidal thoughts. Physical Examinations : Constitutional : Cooperative , not in acute distress . Neurologic : Cranial nerve II to XII intact. No focal neurological deficits. Psychiatric : alert & oriented x 3. Matching mood & appropriate affect. Judgment & insight intact. Musculoskeletal : Cervical Spine Motor strength in the deltoid and biceps: Normal right side. Normal Left side Motor strength biceps and the wrist extensors: Normal right side . Normal left side Motor strength in the triceps muscle: Normal right side. Normal left side Deep tendon reflexes: Normal at the biceps. Normal at Brachioradialis. Normal at triceps Vertebral body tenderness to deep palpation over Cervical facet loading test: positive bilaterally Spurling test: positive bilaterally Neck distraction test: positive bilaterally Teagan sign: positive bilaterally Lumbar spine Motor strength lower extremities ,thigh and legs 5/5 Right side , 5/5 Left side Deep tendon reflexes : Normal Knee Jerk. Normal Ankle Jerk Vertebral body tenderness over Lumbar facet Loading Test: positive Right / positive Left Range of motion of the lumbar spine Flexion 30 degrees, extension 10 degrees Straight Leg Raise test: Left/ Right positive at degree Dmitri test: positive right / positive left. Severe tenderness over the Sacroiliac joint on the Right / Left sides Gaenslen test: positive bilaterally Seated flexion test: positive bilaterally. Sacral spine : Severe tenderness over the Sacroiliac joint: right side / left side Range of motion: Flexion of the lumbar spine <60 degrees Range of motion: Extension of the lumbar spine <20 degrees Gaenslen's Test positive R Dmitri test: positive right side / left side Thigh Thrust Test R Sacral Thrust Test Imaging: X-ray of the lumbar spine from 04/27/22 reviewed Assessment/ Plan : R Sacroiliitis R SI injection. May need a series, up to 4 within a 12 mo period, for optimal pain relief. Risks, benefits of procedure discussed and patient verbalized understanding. Admits to aspirin or anti- coagulant use or medical history of diabetes. Protocol for discontinuation/ continuation of medications bry procedure discussed. All questions answered. I have spent greater than 30 minutes on patient care today. Dr Quiroga was available by phone for the evaluation of this patient. The time was used to review the medical records including relevant urine studies and Prescription history (MAPs), review of the available imaging, evaluation and examination of the patient, coordination of care with the medical staff and if applicable referring physicians, as well as creation of the medical record Home Medications: Ambulatory Orders Atorvastatin [Lipitor] 80 mg PO HS 05/27/20 Calcium Citrate 500 mg PO DAILY 05/27/20 Multivit-Min/FA/Lycopen/Lutein [Centrum Silver Tablet] 1 each PO DAILY 05/27/20 Omeprazole 20 mg PO DAILY 05/27/20 Pioglitazone [Actos] 45 mg PO DAILY 05/27/20 carvediloL [Coreg] 6.25 mg PO BID 05/27/20 lisinopriL [Zestril] 5 mg PO DAILY 05/27/20 Etanercept [Enbrel] 50 mg SQ Q7DAYS 06/12/20 Dapagliflozin Propanediol [Farxiga] 3 mg PO DAILY 02/19/21 Semaglutide [Rybelsus] 3 mg PO DAILY 02/19/21 Bimatoprost [Lumigan .01% Ophth Soln] 1 drop BOTH EYES HS 04/03/21 Controlled Substance Measures - Controlled Substance Measures Is patient prescribed a controlled substance at discharge?: No
== END | disposition home or self-care (01) ==
LOC: PNWHC3 08:23
PROVIDERS: ATTEND Specialist
DX: M46.1 Sacroiliitis, not elsewhere classified (principal)
CPT/HCPCS: 99211

== ENCOUNTER 2022-06-17 07:37 | Day surgery (SDC) | payer MEDICARE, OTHER ==
[2022-06-15 11:09] VITALS: BMI 24.7
[~2022-06-17 07:37] MED LIST changes: -DEXAMETHASONE SOD PHOSPHATE 4 MG/ML 1 ML VIAL IV ONE; -HYDROmorphone 0.5 MG/0.5 ML SYRINGE IVP PRN; +LIDOCAINE 1% (10MG/ML) FOR IV START INTRADERMA PRN; -MIDAZOLAM 2 MG/2 ML VIAL IV PRN; -ONDANSETRON 4 MG/2 ML VIAL IVP ONE; -SCOPOLAMINE 1.5MG/72HR PATCH TRANSDERM ONE
[2022-06-17 08:09] VITALS: TEMP 97.1
[2022-06-17 08:16] LABS: Glucose,Whole Blood 129 mg/dL (70-110)
[2022-06-17] MEDS ORDERED: fentaNYL (PF) 50 MCG/ML 2 ML AMP ONE (08:43)
[2022-06-17] MEDS ORDERED: ROPIVACAINE 5 MG/ML 20 ML AMPULE ONE (08:43)
[2022-06-17] MEDS ORDERED: methylPREDNISolone ACETATE 40 MG/ML 1 ML VIAL ONE (08:43)
[2022-06-17] MEDS ORDERED: MIDAZOLAM 2 MG/2 ML VIAL ONE (08:43)
--- NOTE | 2022-06-17 08:54 | P.PCN ---
Date of Procedure: 06/17/22 Procedure(s) Performed: Procedure= Right sacroiliac joints steroid injection under fluoroscopy guidance (fluoroscopy image stored on file in the radiology Department ) Preoperative diagnosis= 1- right sacroiliitis 2-right sacroiliac joint dysfunction Postoperative diagnosis=Same as preop Diagnosis . Complication = none Condition= stable Anesthesia= moderate sedation with intravenous Versed 2 mg , and fentanyl 50 micrograms . Sedation start time: 0 845 Sedation end time : 0 851 Indication for the procedure= patient complaining of low back pain , examination was positive for severe tenderness over the right sacroiliac joints and patient diagnosed with sacroiliitis, for this reason, she was good candidate for right sacroiliac joint steroid injection. Description of the procedure= procedure risk and benefits discussed with the patient, including but not limited, risk of infection and bleeding, and ALLERGIC reaction to the medication and not complete pain relief and patient agreed with the preceding patient taken to the operating room, placed in prone position or standard monitors applied to the patient then after induction of anesthesia back prepped with chlorhexidine 3 times , Then under strict sterile technique, I did the right sacroiliac joint the which was identified under fluoroscopy guidance been local infiltration of the skin and subcu interstitial with lidocaine 1% then 22-gauge Quincke Needle advanced slowly under fluoroscopy and placed in the right sacroiliac joint needle placement confirmed with AP and oblique and lateral view and after appropriate needle placement confirmed and after negative aspiration, or heme , then Ropivacaine 0.5% 4 mL, and 40 mg of Depo-Medrol mixed together and injected in the right sacroiliac joint after negative aspiration patient tolerated the procedure well without any complication.
[2022-06-17] MEDS ORDERED: IV FLUID CONTINUATION 1,000 ML IV ONE (08:56)
[2022-06-17 09:00] VITALS: RESP 12
[2022-06-17 09:20] LABS: Glucose,Whole Blood 116 mg/dL (70-110)
--- NOTE | 2022-06-17 09:20 | FL ---
Fluoroscopy History: SI Inj 3sec fluoro time, 1 image to PACS
[2022-06-17 09:30] VITALS: BP 116/73; PULSE 78
== END 2022-06-17 09:28 | disposition home or self-care (01) ==
LOC: ORPAIN 07:37
PROVIDERS: ATTEND Specialist
DX: M46.1 Sacroiliitis, not elsewhere classified (principal); M53.3 Sacrococcygeal disorders, not elsewhere classified
CPT/HCPCS: J2250; J1030; J3010; J2795; G0260; 27096

== ENCOUNTER → 2022-06-30 | Outpatient (CLI) | payer MEDICARE, OTHER ==
[2022-06-30 08:29] VITALS: BP 128/75; PULSE 81; RESP 16; TEMP 98.5
--- NOTE | 2022-06-30 15:32 | P.PAINPG ---
Objective - Vital Signs Vital signs: Intake & Output 06/29/22 06/30/22 06/30/22 18:59 06:59 18:59 Weight 63.503 kg PQRS Measure Charge Sheet Comment: A 66 yr old female with a history of severe and chronic low back pain secondary to lumbar DDD and spondylosis with facet arthropathy without myelopathy presents today for evaluation s/p R SI injection. Pt states she experienced 75% pain relief x 2 wks s/p procedure. Pain level is currently at 2 /10 in intensity, constant, localized in the R lower lumbar spine, sharp in character w shooting towards the R hip. Pain is provoked by sitting for periods of 30 min or more. Pain is alleviated with heat, medications, topicals, repositioning and rest. Interventional pain procedures completed include R SI injectino Patient is currently on Aleve, Flexeril Patient denies any side effects of the medication(s), denies excessive drowsiness or sleepiness, denies suicidal ideation and reports that the current pain medication is helping to control the pain and improve activities of daily living. Patient denies any motor or sensory deficits. Patient denies any fever or night sweats, denies any change in the bowel movements or urination. Physical Examination: -Constitutional: Cooperative. Not in acute distress . - Neurologic: Cranial nerve II to XII intact. No focal neurological deficits. - Psychatric: Alert & oriented x 3. Matching mood & appropriate affect. Judgment and insight intact. - Musculoskeletal: Cervical spine: Muscle bulk/ tone/ strength in the bilateral upper extremities normal Vertebral body tenderness to palpation over Spurling test positive Distraction test positive Facet loading test positive Thoracic spine Muscle bulk / tone/ strength in the bilateral paraspinal muscles normal Vertebral body tender to palpation over Facet loading test positive Lumbar spine: Motor bulk/ tone/ strength lower extremities , thigh and legs : 5/5 Deep tendon reflexes : Normal Knee Jerk. Normal Ankle Jerk . Vertebral body tenderness to palpation over Lumbar Facet Loading Test positive Straight Leg Raise: positive at 30 degrees right side/ left side Gaenslen's Test positive Sacral spine : Severe tenderness over the Sacroiliac joint: right side / left side Range of motion: Flexion of the lumbar spine <60 degrees Range of motion: Extension of the lumbar spine <20 degrees Gaenslen's Test positive Dmitri test: positive right side / left side Thigh Thrust Test Sacral Thrust Test Assessment and plan: Chronic low back pain secondary to lumbar degenerative disc disease, spondylosis with facet arthropathy without myelopathy Pt exhibited sufficient pain relief s/p procedure. She may return to this clinic on an as needed basis. Risks, benefits of procedure discussed and pt verbalized understanding. Denies anticoagulant use or medical history of diabetes. All patient questions answered I have spent less than 30 minutes on patient care today. Dr Quiroga was available by phone for the evaluation of this patient. The time was used to review the medical records including relevant urine studies and Prescription h istory (MAPs), review of the available imaging, evaluation and examination of the patient, coordination of care with the medical staff and if applicable referring physicians, as well as creation of the medical record PQRS Narrative: Hx Alcohol Use (MH) No Home Medications: Ambulatory Orders Atorvastatin [Lipitor] 80 mg PO HS 05/27/20 Calcium Citrate 500 mg PO DAILY 05/27/20 Multivit-Min/FA/Lycopen/Lutein [Centrum Silver Tablet] 1 each PO DAILY 05/27/20 Omeprazole 20 mg PO DAILY 05/27/20 Pioglitazone [Actos] 45 mg PO DAILY 05/27/20 carvediloL [Coreg] 6.25 mg PO BID 05/27/20 lisinopriL [Zestril] 5 mg PO DAILY 05/27/20 Etanercept [Enbrel] 50 mg SQ FR 06/12/20 Dapagliflozin Propanediol [Farxiga] 3 mg PO DAILY 02/19/21 Semaglutide [Rybelsus] 3 mg PO DAILY 02/19/21 Bimatoprost [Lumigan .01% Ophth Soln] 1 drop BOTH EYES HS 04/03/21 Controlled Substance Measures - Controlled Substance Measures Is patient prescribed a controlled substance at discharge?: No
== END ==
LOC: PNWHC3 08:00
PROVIDERS: ATTEND Specialist
DX: M47.816 Spondylosis without myelopathy or radiculopathy, lumbar region (principal); M51.36 Other intervertebral disc degeneration, lumbar region; G89.29 Other chronic pain
CPT/HCPCS: 99211

== ENCOUNTER → 2022-07-13 | Outpatient (CLI) | payer MEDICARE, OTHER ==
--- NOTE | 2022-07-13 14:27 | MR ---
EXAMINATION TYPE: MR lumbar spine wo con DATE OF EXAM: 07/13/2022 8:46 AM COMPARISON: None CLINICAL INDICATION:Female, 66 years old with history of M46.1 SACROILIITIS, M54.16; Sacroiliitis, LB P, RLE radiculopathy TECHNIQUE: Multi planar, multi sequence imaging was performed utilizing: T1-weighted, T2-weighted, a nd turbo inversion recovery imaging of the lumbar spine. IV Contrast: None. FINDINGS: Alignment: The lumbar vertebral bodies have preserved heights and alignment. Cord: The conus medullaris and the distal spinal cord appear unremarkable with regards to their signa l intensity and morphology. Bones/Discs: Bone signal is within normal limits. Disc signal is maintained. T12-L1: No evidence of significant spinal canal stenosis or neural foraminal stenosis. L1-L2: No evidence of significant spinal canal stenosis or neural foraminal stenosis. L2-L3: No evidence of significant spinal canal stenosis or neural foraminal stenosis. L3-L4: No evidence of significant spinal canal stenosis or neural foraminal stenosis. L4-L5: No evidence of significant spinal canal stenosis or neural foraminal stenosis. L5-S1: The disc is rounded posterior morphology without significant spinal canal stenosis. Facet join t arthropathy with mild neural foraminal stenosis. Other findings: The gallbladder appears surgically absent. There is dilation of the common bile duct up to 7 mm. IMPRESSION: 1. No definitive evidence of disc herniation or significant spinal canal stenosis. No finding to exp barbara the patient's right lower extremity radiculopathy. 2. Minimal disc degeneration with associated osteoarthritic changes.
== END | disposition home or self-care (01) ==
LOC: RADMRIMAIN 07:50
PROVIDERS: ATTEND Nurse Practitioner Family
DX: M51.16 Intervertebral disc disorders with radiculopathy, lumbar region (principal); M47.26 Other spondylosis with radiculopathy, lumbar region; M46.1 Sacroiliitis, not elsewhere classified
CPT/HCPCS: 72148

== ENCOUNTER 2022-09-21 06:09 | Day surgery (SDC) | payer MEDICARE, OTHER ==
[2022-09-17 09:19] VITALS: BMI 24.7
[2022-09-21] MEDS ORDERED: LIDOCAINE 1% (10MG/ML) FOR IV START INTRADERMA PRN (06:28)
[2022-09-21] MEDS ORDERED: LACTATED RINGERS 1,000 ML IV SCH (06:28)
[2022-09-21 06:59] LABS: Glucose,Whole Blood 114 mg/dL (70-110)
[2022-09-21 07:05] VITALS: RESP 20; TEMP 98.9
[2022-09-21] MEDS ORDERED: MIDAZOLAM 2 MG/2 ML VIAL ONE (07:27)
[2022-09-21] MEDS ORDERED: fentaNYL (PF) 50 MCG/ML 2 ML AMP ONE (07:27)
[2022-09-21] MEDS ORDERED: ROPIVACAINE 5 MG/ML 20 ML AMPULE ONE (07:27)
[2022-09-21] MEDS ORDERED: methylPREDNISolone ACETATE 40 MG/ML 1 ML VIAL ONE (07:27)
--- NOTE | 2022-09-21 07:40 | P.PCN ---
Date of Procedure: 09/21/22 Procedure(s) Performed: Procedure= Right sacroiliac joints steroid injection under fluoroscopy guidance (fluoroscopy image stored on file in the radiology Department ) Preoperative diagnosis= 1- right sacroiliitis 2-right sacroiliac joint dysfunction Postoperative diagnosis=Same as preop Diagnosis . Complication = none Condition= stable Anesthesia= moderate sedation with intravenous Versed 2 mg , and fentanyl 50 micrograms . Sedation start time: 730 Sedation end time : 0 738 Indication for the procedure= patient complaining of low back pain , examination was positive for severe tenderness over the right sacroiliac joints and patient diagnosed with sacroiliitis, for this reason, she was good candidate for right sacroiliac joint steroid injection. Description of the procedure= procedure risk and benefits discussed with the patient, including but not limited, risk of infection and bleeding, and ALLERGIC reaction to the medication and not complete pain relief and patient agreed with the preceding patient taken to the operating room, placed in prone position or standard monitors applied to the patient then after induction of anesthesia back prepped with chlorhexidine 3 times , Then under strict sterile technique, I did the right sacroiliac joint the which was identified under fluoroscopy guidance been local infiltration of the skin and subcu interstitial with lidocaine 1% then 22-gauge Quincke Needle advanced slowly under fluoroscopy and placed in the right sacroiliac joint needle placement confirmed with AP and oblique and lateral view and after appropriate needle placement confirmed and after negative aspiration, or heme , then Ropivacaine 0.5% 4 mL, and 40 mg of Depo-Medrol mixed together and injected in the right sacroiliac joint after negative aspiration patient tolerated the procedure well without any complication.
[2022-09-21] MEDS ORDERED: IV FLUID CONTINUATION 600 ML IV ONE (07:46)
--- NOTE | 2022-09-21 07:57 | FL ---
EXAMINATION TYPE: FL guided pain mgmt statistic DATE OF EXAM: 09/21/2022 CLINICAL HISTORY: Sacroiliac joint pain. TECHNIQUE: Fluoroscopy. COMPARISON: None. FINDINGS: Fluoroscopic guidance was provided during pain relief procedure performed by Dr. Quiroga . A total of 4 seconds of fluoroscopic time was utilized during the procedure and 1 spot images are acquired. Single image acquired shows needle localization at the inferior sacroiliac joint level. IMPRESSION: As Above. TOTAL DAP = [id number] mGy x m2
[2022-09-21 08:24] VITALS: BP 120/79; PULSE 80
== END 2022-09-21 08:34 ==
LOC: ORPAIN 06:09
PROVIDERS: ATTEND Specialist
DX: M46.1 Sacroiliitis, not elsewhere classified (principal); M99.04 Segmental and somatic dysfunction of sacral region
CPT/HCPCS: J2250; J1030; J3010; J2795; G0260; 27096

== ENCOUNTER → 2022-10-11 | Outpatient (CLI) | payer MEDICARE, OTHER ==
[2022-10-11 08:59] VITALS: BP 122/79; PULSE 80; RESP 18; TEMP 97.7
--- NOTE | 2022-10-11 12:28 | P.PAINPG ---
PQRS Measure Charge Sheet Comment: A 66 yr old female with a history of severe and chronic LBP x 1 yr secondary to lumbar DDD and spondylosis with facet arthropathy without myelopathy and R Sacroilitis, presents today for evaluation s/p R SI injection. PT states she experienced 80% pain relief s/p procedure. Pain level is provoked at 2 /10 in intensity, intermittent, localized in the lumbar spine, dull/ achy/ sharp in character w shooting towards . Pain is provoked by sitting for periods of 30min or more. Pain is alleviated with PT x 6 wks in May 2022, yoga x 3 mo which she is currently in, heat, ice, medications, topical, repositioning and rest. Interventional pain procedures completed include R SI injection Patient is currently on Aleve, Voltaren gel Patient denies any side effects of the medication(s), denies excessive drowsiness or sleepiness, denies suicidal ideation and reports that the current pain medication is helping to control the pain and improve activities of daily living. Patient denies any motor or sensory deficits. Patient denies any fever or night sweats, denies any change in the bowel movements or urination. Physical Examination: -Constitutional: Cooperative. Not in acute distress . - Neurologic: Cranial nerve II to XII intact. No focal neurological deficits. - Psychatric: Alert & oriented x 3. Matching mood & appropriate affect. Judgment and insight intact. - Musculoskeletal: Cervical spine: Muscle bulk/ tone/ strength in the bilateral upper extremities normal Vertebral body tenderness to palpation over Spurling test positive Distraction test positive Facet loading test positive TTP Thoracic spine Muscle bulk / tone/ strength in the bilateral paraspinal muscles normal Vertebral body tender to palpation over Facet loading test positive TTP Lumbar spine: Motor bulk/ tone/ strength lower extremities , thigh and legs : 5/5 Deep tendon reflexes : Normal Knee Jerk. Normal Ankle Jerk . Vertebral body tenderness to palpation over Lumbar Facet Loading Test positive Straight Leg Raise: positive at 30 degrees right side/ left side Gaenslen's Test positive Sacral spine : Severe tenderness over the Sacroiliac joint: right side / left side Range of motion: Flexion of the lumbar spine <60 degrees Range of motion: Extension of the lumbar spine <20 degrees Gaenslen's Test positive right side / left side Dmitri test: positive right side / left side Thigh Thrust Test positive right side / left side Sacral Thrust Test positive right side / left side Assessment and plan: Chronic LBP secondary to lumbar DDD, spondylosis with facet arthropathy without myelopathy Pt exhibited sufficient and substantial pain relief. May return to the clinic on an as needed basis. All questions answered. I have spent less than 30 minutes on patient care today. Dr Quiroga was available by phone for the evaluation of this patient. The time was used to review the medical records including relevant urine studies and Prescription history (MAPs), review of the available imaging, evaluation and examination of the patient, coordination of care with the medical staff and if applicable referring physicians, as well as creation of the medical record PQRS Narrative: Hx Alcohol Use (MH) No Home Medications: Ambulatory Orders Atorvastatin [Lipitor] 80 mg PO HS 05/27/20 Calcium Citrate 500 mg PO DAILY 05/27/20 Multivit-Min/FA/Lycopen/Lutein [Centrum Silver Tablet] 1 each PO DAILY 05/27/20 Omeprazole 20 mg PO DAILY 05/27/20 Pioglitazone [Actos] 45 mg PO DAILY 05/27/20 carvediloL [Coreg] 6.25 mg PO BID 05/27/20 lisinopriL [Zestril] 5 mg PO HS 05/27/20 Etanercept [Enbrel] 50 mg SQ FR 06/12/20 Dapagliflozin Propanediol [Farxiga] 3 mg PO DAILY 02/19/21 Semaglutide [Rybelsus] 3 mg PO DAILY 02/19/21 Bimatoprost [Lumigan .01% Ophth Soln] 1 drop BOTH EYES HS 04/03/21 Controlled Substance Measures - Controlled Substance Measures Is patient prescribed a controlled substance at discharge?: No
== END ==
LOC: PNWHC3 08:02
PROVIDERS: ATTEND Specialist
DX: M51.36 Other intervertebral disc degeneration, lumbar region (principal); M47.816 Spondylosis without myelopathy or radiculopathy, lumbar region; G89.29 Other chronic pain
CPT/HCPCS: 99211

== ENCOUNTER → 2022-12-29 | Outpatient (CLI) | payer MEDICARE, OTHER ==
[2022-12-29 09:52] VITALS: BP 135/81; PULSE 81; RESP 16; TEMP 97.9
--- NOTE | 2022-12-29 14:31 | P.PAINPG ---
PQRS Measure Charge Sheet Comment: A 67 yr old female with a history of severe and chronic LBP secondary to lumbar DDD and spondylosis with facet arthropathy without myelopathy presents today for LBP. Pain level is provoked at 7.5 /10 in intensity, constant, localized in the lumbar spine, dull/ achy/ sharp in character w shooting towards the thighs. Pain is provoked by bending and carrying. Pain is alleviated with heat, ice, medications, topical, PT x 8 wks in Jun 2022, repositioning and rest. Oswestry pain score of 18. Interventional pain procedures completed include R SI (Sep 2022) Patient is currently on Aleve prn Patient denies any side effects of the medication(s), denies excessive drowsiness or sleepiness, denies suicidal ideation and reports that the current pain medication is helping to control the pain and improve activities of daily living. Patient denies any motor or sensory deficits. Patient denies any fever or night sweats, denies any change in the bowel movements or urination. Physical Examination: -Constitutional: Cooperative. Not in acute distress . - Neurologic: Cranial nerve II to XII intact. No focal neurological deficits. - Psychatric: Alert & oriented x 3. Matching mood & appropriate affect. Judgment and insight intact. - Musculoskeletal: Cervical spine: Muscle bulk/ tone/ strength in the bilateral upper extremities normal Vertebral body tenderness to palpation over Spurling test positive Distraction test positive Facet loading test positive TTP Thoracic spine Muscle bulk / tone/ strength in the bilateral paraspinal muscles normal Vertebral body tender to palpation over Facet loading test positive TTP Lumbar spine: Motor bulk/ tone/ strength lower extremities , thigh and legs : 5/5 Deep tendon reflexes : Normal Knee Jerk. Normal Ankle Jerk . Vertebral body tenderness to palpation over Ram Test positive Lumbar Facet Loading Test positive Straight Leg Raise: positive at 30 degrees right side/ left side Gaenslen's Test positive Sacral spine : Severe tenderness over the Sacroiliac joint: right side / left side Range of motion: Flexion of the lumbar spine <60 degrees Range of motion: Extension of the lumbar spine <20 degrees Gaenslen's Test positive right side / left side Dmitri test: positive right side / left side Thigh Thrust Test positive right side / left side Sacral Thrust Test positive right side / left side Assessment and plan: Chronic LBP secondary to lumbar DDD, spondylosis with facet arthropathy without myelopathy Recommendation of R SI injection. May need a series for optimal pain relief. Risks, benefits of procedure discussed and pt verbalized understanding. Admits to anticoagulant use or medical history of diabetes. Protocol for discontinuation/ continuation of medications bry procedure discussed. Minimal anesthesia provided, if clinically indicated, consisting of Versed and Fentanyl. All questions answered. I have spent less than 30 minutes on patient care today. Dr Quiroga was available by phone for the evaluation of this patient. The time was used to review the medical records including relevant urine studies and Prescription history (MAPs), review of the available imaging, evaluation and examination of the patient, coordination of care with the medical staff and if applicable referring physicians, as well as creation of the medical record PQRS Narrative: Hx Alcohol Use (MH) No Home Medications: Ambulatory Orders Atorvastatin [Lipitor] 80 mg PO HS 05/27/20 Calcium Citrate 500 mg PO DAILY 05/27/20 Multivit-Min/FA/Lycopen/Lutein [Centrum Silver Tablet] 1 each PO DAILY 05/27/20 Omeprazole 20 mg PO DAILY 05/27/20 Pioglitazone [Actos] 45 mg PO DAILY 05/27/20 carvediloL [Coreg] 6.25 mg PO BID 05/27/20 lisinopriL [Zestril] 5 mg PO HS 05/27/20 Etanercept [Enbrel] 50 mg SQ FR 06/12/20 Dapagliflozin Propanediol [Farxiga] 3 mg PO DAILY 02/19/21 Semaglutide [Rybelsus] 3 mg PO DAILY 02/19/21 Bimatoprost [Lumigan .01% Ophth Soln] 1 drop BOTH EYES HS 04/03/21 Controlled Substance Measures - Controlled Substance Measures Is patient prescribed a controlled substance at discharge?: No
== END ==
LOC: PNWHC3 08:59
PROVIDERS: ATTEND Specialist
DX: M51.36 Other intervertebral disc degeneration, lumbar region (principal); M47.816 Spondylosis without myelopathy or radiculopathy, lumbar region; G89.29 Other chronic pain; M53.3 Sacrococcygeal disorders, not elsewhere classified
CPT/HCPCS: 99211

== ENCOUNTER 2023-01-06 07:52 | Day surgery (SDC) | payer MEDICARE, OTHER ==
[2023-01-06] MEDS ORDERED: LACTATED RINGERS 1,000 ML IV SCH (08:31)
[2023-01-06 08:39] VITALS: TEMP 98.5
[2023-01-06 08:50] LABS: Glucose,Whole Blood 119 mg/dL (70-110)
[2023-01-06] MEDS ORDERED: methylPREDNISolone ACETATE 40 MG/ML 1 ML VIAL ONE (09:10)
[2023-01-06] MEDS ORDERED: IOPAMIDOL M200 10 ML VIAL ONE (09:10)
--- NOTE | 2023-01-06 09:17 | P.PCN ---
Date of Procedure: 01/06/23 Procedure(s) Performed: Procedure= Right sacroiliac joints steroid injection under fluoroscopy guidance (fluoroscopy image stored on file in the radiology Department ) Preoperative diagnosis= 1- right sacroiliitis 2-right sacroiliac joint dysfunction Postoperative diagnosis=Same as preop Diagnosis . Complication = none Condition= stable Anesthesia= local anesthesia ropivacaine 0.5% 2 mL for skin and subcu infiltration Indication for the procedure= patient complaining of low back pain , examination was positive for severe tenderness over the right sacroiliac joints and patient diagnosed with sacroiliitis, for this reason, she was good candidate for right sacroiliac joint steroid injection. Description of the procedure= procedure risk and benefits discussed with the patient, including but not limited, risk of infection and bleeding, and ALLERGIC reaction to the medication and not complete pain relief and patient agreed with the preceding patient taken to the operating room, placed in prone position or standard monitors applied to the patient then after induction of anesthesia back prepped with chlorhexidine 3 times , Then under strict sterile technique, I did the right sacroiliac joint the which was identified under fluoroscopy guidance been local infiltration of the skin and subcu interstitial with lidocaine 1% then 22-gauge Quincke Needle advanced slowly under fluoroscopy and placed in the right sacroiliac joint needle placement confirmed with AP and oblique and lateral view and with the injection of Isovue 200 , 1 mL injected and showed appropriate spread in the sacroiliac joint and after appropriate needle placement confirmed and after negative aspira tion, or heme , then Ropivacaine 0.5% 2 mL, and 40 mg of Depo-Medrol mixed together and injected in the right sacroiliac joint after negative aspiration patient tolerated the procedure well without any complication.
[2023-01-06 09:23] VITALS: BP 157/68; PULSE 76; RESP 18
--- NOTE | 2023-01-06 16:48 | FL ---
EXAMINATION TYPE: FL guided pain mgmt statistic DATE OF EXAM: 01/06/2023 FLUOROSCOPY Fluoroscopy time of 4 seconds was used during SI joint injection. 1 image/s document/s the procedure . DOSE AREA PRODUCT (DAP) UGY*M,MGY*CM: 0.006
== END 2023-01-06 09:36 | disposition home or self-care (01) ==
LOC: ORPAIN 07:52
PROVIDERS: ATTEND Specialist
DX: M46.1 Sacroiliitis, not elsewhere classified (principal)
CPT/HCPCS: J1030; Q9966; G0260; 27096

== ENCOUNTER → 2023-01-27 | Outpatient (CLI) | payer MEDICARE, OTHER ==
--- NOTE | 2023-01-27 11:51 | MR ---
EXAMINATION TYPE: MR knee LT wo con DATE OF EXAM: 01/27/2023 COMPARISON: X-ray 01/19/2023 HISTORY: Left knee pain TECHNIQUE: Multiplanar, multisequence imaging of the left knee is performed without IV contrast. FINDINGS: MEDIAL MENISCUS: Anterior and posterior horns are intact without tear. LATERAL MENISCUS: Anterior and posterior horns are intact without tear. CRUCIATE LIGAMENTS: The anterior and posterior cruciate ligaments are intact and unremarkable. COLLATERAL LIGAMENTS: The medial collateral ligament and lateral collateral ligament complex are inta ct and unremarkable. EXTENSOR MECHANISM: Visualized quadriceps and patellar tendons are intact. EFFUSION: No significant suprapatellar joint effusion. POPLITEAL CYST: A subcentimeter popliteal fossa cyst. There are multiple cystic structures seen in t he posterior supracondylar portion of the medial and lateral soft tissues compatible with multiple felix bcentimeter ganglion cyst.. TRICOMPARTMENT SPACES: There is spurring along the upper margin of the patella. There is mild narrowi ng of patellofemoral and medial compartment joint space. CARTILAGE: There is mild thinning of the lateral patellar facet cartilage. Remaining cartilage appear s to be maintained. BONE MARROW SIGNAL: No focal abnormal marrow signal is appreciated. OTHER: There is a faint abnormal signal posteriorly within the gastrocnemius muscles likely represen ting a mild intramuscular strain. There is a very faint increased signal involving the quadriceps tendon insertion upon the patella. IMPRESSION: 1. Mild osteoarthritis with no evidence of ligamentous or meniscal tear. 2. Faint intramuscular signal within the gastrocnemius posteriorly suggests mild intramuscular strain or reactive secondary to altered walking mechanics. 3. Multiple subcentimeter ganglion cyst noted posterior to the medial and lateral femoral condyle. 4. Mild quadriceps tendinitis.
== END | disposition home or self-care (01) ==
LOC: RADMRIMAIN 10:26
PROVIDERS: ATTEND Orthopaedic Surgery
DX: M17.12 Unilateral primary osteoarthritis, left knee (principal); M67.462 Ganglion, left knee; M76.52 Patellar tendinitis, left knee

== ENCOUNTER → 2023-02-17 | Outpatient (CLI) | payer MEDICARE, OTHER ==
[2023-02-17 08:05] VITALS: BP 145/83; PULSE 89; RESP 15; TEMP 97.9
--- NOTE | 2023-02-17 13:08 | P.PAINPG ---
PQRS Measure Charge Sheet Comment: A 67 yr old female with a history of severe and chronic LBP secondary to lumbar DDD and spondylosis with facet arthropathy without myelopathy presents today for evaluation s/p R SI injection. Pt states she experienced 60 % pain relief x 1 wks s/p procedure. Pain level is provoked at 8 /10 in intensity, cons tant, localized in the lumbar spine, dull/ achy/ sharp in character w shooting towards the thighs. Pain is provoked by bending and carrying. Pain is alleviated with heat, ice, medications, topical, PT x 8 wks in Jun 2022, repositioning and rest. Oswestry pain score of 18. Interventional pain procedures completed include R SI x2 Patient is currently on Aleve prn, Voltaren gel Patient denies any side effects of the medication(s), denies excessive drowsiness or sleepiness, denies suicidal ideation and reports that the current pain medication is helping to control the pain and improve activities of daily living. Patient denies any motor or sensory deficits. Patient denies any fever or night sweats, denies any change in the bowel movements or urination. Physical Examination: -Constitutional: Cooperative. Not in acute distress . - Neurologic: Cranial nerve II to XII intact. No focal neurological deficits. - Psychatric: Alert & oriented x 3. Matching mood & appropriate affect. Judgment and insight intact. - Musculoskeletal: Cervical spine: Muscle bulk/ tone/ strength in the bilateral upper extremities normal Vertebral body tenderness to palpation over Spurling test positive Distraction test positive Facet loading test positive TTP Thoracic spine Muscle bulk / tone/ strength in the bilateral paraspinal muscles normal Vertebral body tender to palpation over Facet loading test positive TTP Lumbar spine: Motor bulk/ tone/ strength lower extremities , thigh and legs : 5/5 Deep tendon reflexes : Normal Knee Jerk. Normal Ankle Jerk . Vertebral body tenderness to palpation over L5 Ram Test positive Lumbar Facet Loading Test positive Straight Leg Raise: positive at 30 degrees right side/ left side Gaenslen's Test positive Sacral spine : Severe tenderness over the Sacroiliac joint: right side / left side Range of motion: Flexion of the lumbar spine <60 degrees Range of motion: Extension of the lumbar spine <20 degrees Gaenslen's Test positive right side / left side Dmitri test: positive right side / left side Thigh Thrust Test positive right side / left side Sacral Thrust Test positive right side / left side Assessment and plan: Chronic LBP secondary to lumbar DDD, spondylosis with facet arthropathy without myelopathy Recommendation of R TFESI L5-S1 #1. May need a series for optimal pain relief. Risks, benefits of procedure discussed and pt verbalized understanding. Admits to anticoagulant use or medical history of diabetes. Protocol for discontinuation/ continuation of medications bry procedure discussed. Minimal anesthesia provided, if clinically indicated, consisting of Versed and Fentanyl. All questions answered. I have spent less than 30 minutes on patient care today. Dr Quiroga was available by phone for the evaluation of this patient. The time was used to review the medical records including relevant urine studies and Prescription history (MAPs), review of the available imaging, evaluation and examination of the patient, coordination of care with the medical staff and if applicable referring physicians, as well as creation of the medical record PQRS Narrative: Hx Alcohol Use (MH) No Home Medications: Ambulatory Orders Atorvastatin [Lipitor] 80 mg PO HS 05/27/20 Calcium Citrate 500 mg PO DAILY 05/27/20 Multivit-Min/FA/Lycopen/Lutein [Centrum Silver Tablet] 1 each PO DAILY 05/27/20 Omeprazole 20 mg PO DAILY 05/27/20 Pioglitazone [Actos] 45 mg PO DAILY 05/27/20 carvediloL [Coreg] 6.25 mg PO BID 05/27/20 lisinopriL [Zestril] 5 mg PO HS 05/27/20 Etanercept [Enbrel] 50 mg SQ FR 06/12/20 Dapagliflozin Propanediol [Farxiga] 3 mg PO DAILY 02/19/21 Semaglutide [Rybelsus] 3 mg PO DAILY 02/19/21 Bimatoprost [Lumigan .01% Ophth Soln] 1 drop BOTH EYES HS 04/03/21 Controlled Substance Measures - Controlled Substance Measures Is patient prescribed a controlled substance at discharge?: No
== END ==
LOC: PNWHC3 07:38
PROVIDERS: ATTEND Specialist
DX: M51.36 Other intervertebral disc degeneration, lumbar region (principal); M47.816 Spondylosis without myelopathy or radiculopathy, lumbar region; G89.29 Other chronic pain
CPT/HCPCS: 99211

== ENCOUNTER → 2023-03-10 | Day surgery (SDC) | payer MEDICARE, OTHER ==
[~2023-03-10] MED LIST changes: +IOPAMIDOL M200 10 ML VIAL ONE; -LIDOCAINE 1% (10MG/ML) FOR IV START INTRADERMA PRN; +methylPREDNISolone ACETATE 40 MG/ML 1 ML VIAL ONE
[2023-03-10 08:21] LABS: Glucose,Whole Blood 143 mg/dL (70-110)
--- NOTE | 2023-03-10 09:04 | P.PCN ---
Date of Procedure: 03/10/23 Procedure(s) Performed: PREOPERATIVE DIAGNOSIS: 1-Lumbar radiculopathy . 2-lumbar degenerative disc disease. 3-lumbar spondylosis with lumbar facet arthropathy without myelopathy POSTOPERATIVE DIAGNOSIS: 1-lumbar radiculopathy. 2-lumbar degenerative disc disease. 3-lumbar spondylosis with facet arthropathy without myelopathy PROCEDURE 1. Transforaminal epidural steroid injection under fluoroscopic guidance at right L5-S1 level. (Fluoroscopy images stored on file in the radiology Department ) 2. Lumbar epidurogram . ANESTHESIA: Local with 1% lidocaine 3 ml. EBL: Minimal PROCEDURE INDICATION: The patient with low back pain and radiculopathy symptoms unresponsive to conservative treatment. PROCEDURE DESCRIPTION / TECHNIQUE: The patient was seen and identified in the preoperative area. Risks, benefits, complications, and alternatives were discussed with the patient. The patient agreed to proceed with the procedure and signed the consent. IV was started, and vital signs were stable. Patient was taken to the OR and time out was completed. The patient was placed in the prone position on procedure table and a pillow was placed under the abdomen to reduce lumbar lordosis. The lumbosacral area was prepped and draped in the usual sterile fashion. Critical pause was taken. Vital signs were closely monitored during the procedure. Using oblique fluoroscopy, the chin of the ``Wan dog at right L5-S1 level was identified, and the skin and deeper tissues just below was localized with 1% lidocaine. Subsequently, a 22-gauge 3.5-inch spinal needle was advanced under a tunneled view fluoroscopic guidance just underneath the chin of the `Claudey dog at the right L5-S1 Under lateral fluoroscopy, the needle was then advanced to the posterior border of the interforaminal space. After negative aspiration of CSF and blood and with no paresthesias, 1 mL Isovue 200 contrast dye was injected excellent epidurogram and outlining of the nerve root Subsequently, 3 mL of block solution containing 40 mg Depo-Medrol and 2 mL of 0.9% normal saline PF was injected. Needle was removed . At the end of the procedure, skin was cleansed, and bandages were applied. COMPLICATIONS:none DISPOSITION / PLANS: The patient was placed in a supine position and transferred to the recovery area in a stable condition for observation. There was no evidence of lower extremity motor or sensory deficit after the procedure. Patient was discharged from the recovery room after meeting discharge criteria. Home discharge instructions were given to the patient by the staff. The patient was reexamined prior to discharge.
--- NOTE | 2023-03-10 11:19 | FL ---
Intraoperative/procedural fluoroscopic services were provided. Total fluoroscopy time is 3.1 seconds with a total of 1 submitted images to PACS. Please see the operative/procedural note for further deta ils. DAP: 0.15097 mGym2
[2023-03-10 15:57] VITALS: BP 140/71; PULSE 81; RESP 14; TEMP 97.4
== END ==
LOC: ORPAIN 08:00
PROVIDERS: ATTEND Specialist
DX: M51.16 Intervertebral disc disorders with radiculopathy, lumbar region (principal); M47.26 Other spondylosis with radiculopathy, lumbar region
CPT/HCPCS: 64483; J1030; Q9966

== ENCOUNTER → 2023-03-31 | Outpatient (CLI) | payer MEDICARE, OTHER ==
--- NOTE | 2023-03-31 11:15 | P.PN ---
Subjective Progress Note Date: 03/31/23 Principal diagnosis: fibrocystic breast disease fibrocystic breast disease Gloria is a 67-year-old white female who presents for breast examination. He has had cyst aspirated from the right breast in the past and an open biopsy on the left breast. These were benign. She had a bilateral mamogram on 03-25-23 BIRAD 2. Is not complaining of any new lumps masses or nodules of concern in either breast. 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 Social History: Nicotine: Negative; (1/2 PPD since 17 stopped three years ago) Alcohol: Twice a year Drugs: Negative - Constitutional Constitutional: Reports sweats - EENT Comment: glaucoma Ears: deny: decreased hearing, tinnitus Ears, nose, mouth and throat: Denies headache, Denies sore throat - Breasts Breasts: bilateral: as per HPI - Cardiovascular Cardiovascular: Denies chest pain, Denies shortness of breath - Respiratory Respiratory: Denies cough - Gastrointestinal Gastrointestinal: Denies abdominal pain, Denies diarrhea, Denies nausea, Denies vomiting - Genitourinary (Female) Genitourinary: Denies dysuria, Denies hematuria - Menstruation Menstruation: Reports post hysterectomy - Musculoskeletal Musculoskeletal: Reports as per HPI - Integumentary Comment: Sojrins syndrome - Neurological Neurological: Denies numbness, Denies weakness - Psychiatric Psychiatric: Denies anxiety, Denies depression - Endocrine Endocrine: Reports weight change - Hematologic/Lymphatic Comment: none - Allergic/Immunologic Allergic/Immunologic: Reports seasonal allergies Objective - Vital Signs Vital signs: Intake & Output 03/30/23 03/31/23 03/31/23 18:59 06:59 18:59 Weight 58.967 kg - Constitutional General appearance: Present: cooperative - EENT Eyes: Present: EOMI ENT: Present: hearing grossly normal - Neck Neck: Present: normal ROM - Respiratory Respiratory: bilateral: CTA - Cardiovascular Heart sounds: normal: S1, S2 - Integumentary Integumentary: Present: normal turgor - Musculoskeletal Musculoskeletal: Present: gait normal - Psychiatric Psychiatric: Present: A&O x's 3, appropriate affect, intact judgment & insight - Additional findings Additional findings: Breast examination: Broad: 36A Inspection: Grade 2 ptosis Palpation: Right breast: Multi-positional exam dense fibroglandular tissue no dominant masses or nodules of concern Right axilla: No adenopathy of concern Left breast: Multiple positional exam dense fibroglandular tissue/fibrocystic changes no dominant masses or nodules of concern Left axilla: No adenopathy of concern Assessment and Plan Assessment: Impression: Fibrocystic breast changes Plan: Fibrocystic breast changes bilateral mammogram in 1 year CC: Dr. Hooker
[2023-03-31 11:19] VITALS: BP 126/72; PULSE 74; RESP 16; TEMP 98.3
== END ==
LOC: WWCWWP 10:37
PROVIDERS: ATTEND Surgery
DX: Z12.31 Encounter for screening mammogram for malignant neoplasm of breast (principal); N60.19 Diffuse cystic mastopathy of unspecified breast; E11.9 Type 2 diabetes mellitus without complications; M06.9 Rheumatoid arthritis, unspecified; I10 Essential (primary) hypertension; M35.00 Sjogren syndrome, unspecified; Z79.899 Other long term (current) drug therapy

== ENCOUNTER → 2023-04-04 | Outpatient (CLI) | payer MEDICARE, OTHER ==
[2023-04-04 10:48] VITALS: BP 134/83; PULSE 78; RESP 16
--- NOTE | 2023-04-04 14:38 | P.PAINPG ---
PQRS Measure Charge Sheet Comment: A 67 yr old female with a history of severe and chronic LBP secondary to lumbar DDD and spondylosis with facet arthropathy without myelopathy presents today for evaluation s/p R TFESI L5-S1. Pt states she experienced 60 % pain relief x 3 wks s/p procedure. Pain level is provoked at 3 /10 in intensity, constant, localized in the lumbar spine, dull in character w shooting pain. Pain is provoked by bending and carrying. Pain is alleviated with heat, ice, medications, THC products, topical, PT x 7 wks in Jun 2022, sitting, repositioning and rest. Oswestry pain score of 16. Interventional pain procedures completed include R SI x2, R TFESI L5-S1 x1 Patient is currently on Aleve prn, Voltaren gel Patient denies any side effects of the medication(s), denies excessive drowsiness or sleepiness, denies suicidal ideation and reports that the current pain medication is helping to control the pain and improve activities of daily living. Patient denies any motor or sensory deficits. Patient denies any fever or night sweats, denies any change in the bowel movements or urination. Physical Examination: -Constitutional: Cooperative. Not in acute distress . - Neurologic: Cranial nerve II to XII intact. No focal neurological deficits. - Psychatric: Alert & oriented x 3. Matching mood & appropriate affect. Judgment and insight intact. - Musculoskeletal: Cervical spine: Muscle bulk/ tone/ strength in the bilateral upper extremities normal Vertebral body tenderness to palpation over Spurling test positive Distraction test positive Facet loading test positive TTP Thoracic spine Muscle bulk / tone/ strength in the bilateral paraspinal muscles normal Vertebral body tender to palpation over Facet loading test positive TTP Lumbar spine: Motor bulk/ tone/ strength lower extremities , thigh and legs : 5/5 Deep tendon reflexes : Normal Knee Jerk. Normal Ankle Jerk . Vertebral body tenderness to palpation over L5 Ram Test positive Lumbar Facet Loading Test positive over BL L4-L5, L5-S1 Straight Leg Raise: positive at 30 degrees right side/ left side Gaenslen's Test positive Sacral spine : Severe tenderness over the Sacroiliac joint: right side / left side Range of motion: Flexion of the lumbar spine <60 degrees Range of motion: Extension of the lumbar spine <20 degrees Gaenslen's Test positive right side / left side Dmitri test: positive right side / left side Thigh Thrust Test positive right side / left side Sacral Thrust Test positive right side / left side Assessment and plan: Chronic LBP secondary to lumbar DDD, spondylosis with facet arthropathy without myelopathy Recommendation of BL MBB L3-L5 #1. May need a series of injections, up until RFA, for optimal pain relief. Risks, benefits of procedure discussed and pt verbalized understanding. Admits to anticoagulant use or medical history of diabetes. Protocol for discontinuation/ continuation of medications bry procedure discussed. Minimal anesthesia provided, if clinically indicated, consisting of Versed and Fentanyl. All questions answered. I have spent less than 30 minutes on patient care today. Dr Quiroga was available by phone for the evaluation of this patient. The time was used to review the medical records including relevant urine studies and Prescription history (MAPs), review of the available imaging, evaluation and examination of the patient, coordination of care with the medical staff and if applicable referring physicians, as well as creation of the medical record PQRS Narrative: Hx Alcohol Use (MH) No Home Medications: Ambulatory Orders Atorvastatin [Lipitor] 80 mg PO HS 05/27/20 Calcium Citrate 500 mg PO DAILY 05/27/20 Multivit-Min/FA/Lycopen/Lutein [Centrum Silver Tablet] 1 each PO DAILY 05/27/20 Omeprazole 20 mg PO DAILY 05/27/20 Pioglitazone [Actos] 45 mg PO DAILY 05/27/20 carvediloL [Coreg] 6.25 mg PO BID 05/27/20 lisinopriL [Zestril] 5 mg PO HS 05/27/20 Etanercept [Enbrel] 50 mg SQ FR 06/12/20 Dapagliflozin Propanediol [Farxiga] 3 mg PO DAILY 02/19/21 Bimatoprost [Lumigan .01% Ophth Soln] 1 drop BOTH EYES HS 04/03/21 Semaglutide [Ozempic] 0.25 mg SQ MO 03/09/23 Controlled Substance Measures - Controlled Substance Measures Is patient prescribed a controlled substance at discharge?: No
== END ==
LOC: PNWHC3 09:23
PROVIDERS: ATTEND Specialist
DX: M51.37 Other intervertebral disc degeneration, lumbosacral region (principal); M47.817 Spondylosis without myelopathy or radiculopathy, lumbosacral region; G89.29 Other chronic pain
CPT/HCPCS: 99211

== ENCOUNTER → 2023-05-12 | Day surgery (SDC) | payer MEDICARE, OTHER ==
[2023-05-10 10:09] VITALS: BMI 22.6
[~2023-05-12] MED LIST changes: -IOPAMIDOL M200 10 ML VIAL ONE; +IV FLUID CONTINUATION 1,000 ML IV ONE; +MIDAZOLAM 2 MG/2 ML VIAL ONE; +ROPIVACAINE 5MG/ML 20ML VIAL ONE; +fentaNYL (PF) 50 MCG/ML 2 ML AMP ONE; -methylPREDNISolone ACETATE 40 MG/ML 1 ML VIAL ONE
[2023-05-12 07:29] LABS: Glucose,Whole Blood 101 mg/dL (70-110)
[2023-05-12 07:52] VITALS: RESP 16; TEMP 98
--- NOTE | 2023-05-12 08:57 | P.PCN ---
Description of Procedure: PREOPERATIVE DIAGNOSIS : 1- Lumbar spondylosis with Facet Arthropathy without myelopathy . 2- Lumber degenerative disc disease POSTOPERATIVE DIAGNOSIS: 1- Lumbar spondylosis with Facet Arthropathy without myelopathy . 2- Lumber degenerative disc disease PROCEDURE: Diagnostic bilateral L3 , L4 , and L5 medial branch block under fluoroscopy guidance(fluoroscopy images available in the radiology Department ) ( To target the facet joint between Bilateral L4-5 , and L5-S1 ) ANESTHESIA:, Monitored anesthesia care as per anesthesia department. moderate sedation with intravenous Versed 2 mg and Fentanyl 50 mcg. EBL: Minimal COMPLICATION: None PROCEDURE INDICATION: Chronic low back pain secondary to Facet arthropathy unresponsive to conservative treatment. PROCEDURE DESCRIPTION: the patient was seen and identified in the preop holding area , risks and benefits and possible complications of the procedure and alternative were discussed with the patient, and the patient agreed to proceed with the procedure and signed the consent and vital signs monitored during the procedure and fluoroscopy was used to maximize the benefit and accuracy of the needle placement, and sedation was given to decrease patient anxiety, patient was taken to the procedure room and placed in prone position vital signs monitored in the back prepped with chlorhexidine X3 then under strict sterile technique using a right oblique fluoroscopy ,the junction of the transverse process and the superior articulating process of the right L4 , and L5 vertebra which corresponding to the fluoroscopy image of the eye of the Wan dog on also at the junction of the superior articular process with ala of the sacrum on the right side the block side for the medial branches and subsequently , after local infiltration of skin osteum contacted, needle placement confirmed with AP oblique and lateral view and after appropriate needle placement confirmed, and after negative aspiration for heme and CSF and there was no paresthesia 1/2 mL of Ropivacaine 0.5% injected at each level after negative aspiration the needle subsequently removed and the same procedure repeated for the left side at left side at L3 , L4 and L5 levels. At the end of the procedure and the needles removed and a bandage applied after the skin was cleaned the cleaning solution patient taken to recovery room in stable condition and monitors in the recovery room for 20-30 minutes and discharged home in stable condition after discharge criteria met and patient will follow up with the pain clinic in 2-4 weeks
[2023-05-12 09:35] VITALS: BP 129/73; PULSE 79
--- NOTE | 2023-05-12 16:27 | FL ---
Fluoroscopy INDICATION: Pain FINDINGS: Fluoroscopy time: 3.1 seconds. Total dose area product (DAP) in uGy*m?, mGy*cm? (or similar): 0.29007 Images obtained: 2. IMPRESSION: 1. Documentation of fluoroscopy.
== END | disposition home or self-care (01) ==
LOC: ORPAIN 06:48
PROVIDERS: ATTEND Pain Medicine Interventional Pain Medicine
DX: M47.816 Spondylosis without myelopathy or radiculopathy, lumbar region (principal); M51.36 Other intervertebral disc degeneration, lumbar region; E11.9 Type 2 diabetes mellitus without complications; K21.9 Gastro-esophageal reflux disease without esophagitis; I10 Essential (primary) hypertension; Z79.84 Long term (current) use of oral hypoglycemic drugs; Z79.899 Other long term (current) drug therapy
CPT/HCPCS: 64493; 64494 ×2; J2250; J3010; J2795; 99152

== ENCOUNTER → 2023-06-09 | Outpatient (CLI) | payer MEDICARE, OTHER ==
[2023-06-09 09:38] VITALS: BP 130/76; PULSE 80; RESP 16; TEMP 98.2
--- NOTE | 2023-06-09 15:05 | P.PAINPG ---
PQRS Measure Charge Sheet Comment: A 67 yr old female with a history of severe and chronic LBP secondary to lumbar DDD and spondylosis with facet arthropathy without myelopathy presents today for evaluation s/p BL MBB L3-L5 #1. Pt states she experienced 100 % pain relief x 6 hrs s/p procedure. Pain level is provoked at 9 /10 in intensity, co nstant, localized in the lumbar spine, predominantly axial, dull in character without occasional shooting pain. Pain is provoked by bending and carrying. Pain is alleviated with heat, ice, medications, THC products, topical, PT x 7 wks in Jun 2022, sitting, repositioning and rest. Oswestry axial pain score of 15. Interventional pain procedures completed include R SI x2, R TFESI L5-S1 x1, BL MBB L3-L5 x1 Patient is currently on Aleve prn, Voltaren gel Patient denies any side effects of the medication(s), denies excessive drowsiness or sleepiness, denies suicidal ideation and reports that the current pain medication is helping to control the pain and improve activities of daily living. Patient denies any motor or sensory deficits. Patient denies any fever or night sweats, denies any change in the bowel movements or urination. Physical Examination: -Constitutional: Cooperative. Not in acute distress . - Neurologic: Cranial nerve II to XII intact. No focal neurological deficits. - Psychatric: Alert & oriented x 3. Matching mood & appropriate affect. Judgment and insight intact. - Musculoskeletal: Cervical spine: Muscle bulk/ tone/ strength in the bilateral upper extremities normal Vertebral body tenderness to palpation over Spurling test positive Distraction test positive Facet loading test positive TTP Thoracic spine Muscle bulk / tone/ strength in the bilateral paraspinal muscles normal Vertebral body tender to palpation over Facet loading test positive TTP Lumbar spine: Motor bulk/ tone/ strength lower extremities , thigh and legs : 5/5 Deep tendon reflexes : Normal Knee Jerk. Normal Ankle Jerk . Vertebral body tenderness to palpation over L5 Ram Test positive Lumbar Facet Loading Test positive over BL L4-L5, L5-S1 Straight Leg Raise: positive at 30 degrees right side/ left side Gaenslen's Test positive Sacral spine : Severe tenderness over the Sacroiliac joint: right side / left side Range of motion: Flexion of the lumbar spine <60 degrees Range of motion: Extension of the lumbar spine <20 degrees Gaenslen's Test positive right side / left side Dmitri test: positive right side / left side Thigh Thrust Test positive right side / left side Sacral Thrust Test positive right side / left side Assessment and plan: Chronic LBP secondary to lumbar DDD, spondylosis with facet arthropathy without myelopathy Recommendation of BL MBB L3-L5 #2. May need a series of injections, up until RFA, for optimal pain relief. Risks, benefits of procedure discussed and pt verbalized understanding. Admits to anticoagulant use or medical history of diabetes. Protocol for discontinuation/ continuation of medications bry procedure discussed. Minimal anesthesia provided, if clinically indicated, consisting of Versed and Fentanyl. Medication management [place] 5/325mg #15 NR Use, side effects, adverse reactions and safe storage discussed. Not to drive within 4 hrs of taking medication while under the influence. Pt acknowledged understanding. All questions answered. I have spent less than 30 minutes on patient care today. Dr Quiroga was available by phone for the evaluation of this patient. The time was used to review the medical records including relevant urine studies and Prescription history (MAPs), review of the available imaging, evaluation and examination of the patient, coordination of care with the medical staff and if applicable referring physicians, as well as creation of the medical record PQRS Narrative: Hx Alcohol Use (MH) No Home Medications: Ambulatory Orders Atorvastatin [Lipitor] 80 mg PO HS 05/27/20 Calcium Citrate 500 mg PO DAILY 05/27/20 Multivit-Min/FA/Lycopen/Lutein [Centrum Silver Tablet] 1 each PO DAILY 05/27/20 Omeprazole 20 mg PO DAILY 05/27/20 Pioglitazone [Actos] 45 mg PO DAILY 05/27/20 carvediloL [Coreg] 6.25 mg PO BID 05/27/20 lisinopriL [Zestril] 5 mg PO HS 05/27/20 Etanercept [Enbrel] 50 mg SQ FR 06/12/20 Bimatoprost [Lumigan .01% Ophth Soln] 1 drop BOTH EYES HS 04/03/21 Semaglutide [Ozempic] 0.25 mg SQ MO 03/09/23 HYDROcodone/APAP 5-325MG [[place] 5-325] 1 tab PO Q4HR PRN 3 Days #18 tab 06/09/23 Controlled Substance Measures - Controlled Substance Measures Is patient prescribed a controlled substance at discharge?: Yes When asked, does pt state using other controlled substances?: No If prescribed controlled substance>3 days was MAPS reviewed?: Prescribed <3 Days
== END ==
LOC: PNWHC3 09:05
PROVIDERS: ATTEND Specialist
DX: M51.37 Other intervertebral disc degeneration, lumbosacral region (principal); M47.817 Spondylosis without myelopathy or radiculopathy, lumbosacral region
CPT/HCPCS: 99211

== ENCOUNTER 2023-06-28 06:38 | Day surgery (SDC) | payer MEDICARE, OTHER ==
[2023-06-28] MEDS ORDERED: LACTATED RINGERS 1,000 ML IV SCH (07:08)
[2023-06-28] MEDS ORDERED: LACTATED RINGERS 1,000 ML IV ONE (07:15)
[2023-06-28 07:25] VITALS: TEMP 97.3
[2023-06-28 07:25] LABS: Glucose,Whole Blood 94 mg/dL (70-110)
[2023-06-28] MEDS ORDERED: MIDAZOLAM 2 MG/2 ML VIAL ONE (08:23)
[2023-06-28] MEDS ORDERED: fentaNYL (PF) 50 MCG/ML 2 ML AMP ONE (08:23)
[2023-06-28] MEDS ORDERED: ROPIVACAINE 5MG/ML 20ML VIAL ONE (08:23)
[2023-06-28] MEDS ORDERED: IV FLUID CONTINUATION 1,000 ML IV ONE (08:48)
--- NOTE | 2023-06-28 08:57 | P.PCN ---
Description of Procedure: Preprocedure diagnosis. 1. Lumbar spondylosis with facet joint arthropathy without myelopathy. 2. Lumbar degenerative disc disease. Postprocedure diagnosis. As above. Procedure done. Bilateral diagnostic block with local anesthetics at L3, L4, L5 medial branch to target the facet joint L4- 5 and L5-S1 with fluoroscopic guidance (fluoroscopy images are available in the radiology department) . Anesthesia. Moderate sedation with intravenous Versed 2 mg and fentanyl 50mics and local infiltration with local anesthetics. In OR, continuous pulse ox, EKG, blood pressure and verbal communication was maintained. Blood loss. Minimal. Indication. The patient has low back pain secondary to lumbar facet joint arthropathy. Discussed the procedure and alternative and complications which includes infection, bleeding, nerve damage, paralysis ,aggravation of pain. Patient understands and all questions were answered. Patient iunderstands that if any pain relief occurs it will last for a few hours to a few days maximum. Procedure description. After getting consent patient was taken in the OR in prone position. Back prepped with chlorhexidine and draped in sterile fashion. After injecting 5 mL of plain 1% lidocaine subcutaneously, a 22-gauge spinal needle was introduced under tunnel vision of the fluoroscope at the junction of the superior articular process with RIGHT ala of the sacrum. With slight oblique fluoroscope, after injecting 5 mL of plain 1% lidocaine subcutaneously, a 22-gauge spinal needle was introduced under tunnel vision of the fluoroscope at the junction of the superior articular process with RIGHT L5 transverse process, junction of the superior articular process with the RIGHT L4 transverse process. Negative CSF, negative blood, negative paresthesia. After needle position confirmation by AP and crosstable lateral view, after negative aspiration, half milliliters of 0.5% ropivacaine were injected at each point. In exactly same way, LEFT sided injections were done at the following 3 points. Junction of the superior articular process with left ala of the sacrum, junction of the superior articular process with the left L5 transverse process, junction of the superior articular process with left L4 transverse process using 0.5 mL of 0.5% preservative-free ropivacaine at each point. Spinal needles were taken out and bandages were applied. Disposition. Patient tolerated the procedure well. No complication. Discharged home in stable condition.
[2023-06-28 09:03] VITALS: RESP 16
[2023-06-28 09:26] VITALS: BP 135/78; PULSE 77
--- NOTE | 2023-06-28 09:56 | FL ---
Fluoroscopy INDICATION: Pain FINDINGS: Fluoroscopy time: 41 seconds. Total dose area product (DAP) in uGy*m?, mGy*cm? (or similar): 0.52183 Images obtained: 5. IMPRESSION: 1. Documentation of fluoroscopy.
== END 2023-06-28 09:16 | disposition home or self-care (01) ==
LOC: ORPAIN 06:38
PROVIDERS: ATTEND Pain Medicine Interventional Pain Medicine
DX: M51.36 Other intervertebral disc degeneration, lumbar region (principal); M47.816 Spondylosis without myelopathy or radiculopathy, lumbar region; E11.9 Type 2 diabetes mellitus without complications
CPT/HCPCS: 64493; 64494 ×2; 99152; 99153; J2250; J3010; J2795

== ENCOUNTER → 2023-08-01 | Outpatient (CLI) | payer MEDICARE, OTHER ==
[2023-08-01 08:49] VITALS: BP 133/76; PULSE 77; RESP 15; TEMP 98.5
--- NOTE | 2023-08-01 13:58 | P.PAINPG ---
Objective - Vital Signs Vital signs: Intake & Output 07/31/23 08/01/23 08/01/23 18:59 06:59 18:59 Weight 59.874 kg PQRS Measure Charge Sheet Comment: A 67 yr old female with a history of severe and chronic LBP secondary to lumbar DDD and spondylosis with facet arthropathy without myelopathy presents today for evaluation s/p BL MBB L3-L5 #2. Pt states she experienced 80 % pain relief x 2 wks s/p procedure. Pain level is provoked at 9 /10 in intensity, constant, localized in the lumbar spine, predominantly axial, dull in character without occasional shooting pain. Pain is provoked by bending and carrying. Pain is alleviated with heat, ice, medications, THC products, topical, PT x 7 wks in Jun 2022, sitting, repositioning and rest. Oswestry axial pain score of 14. Interventional pain procedures completed include R SI x2, R TFESI L5-S1 x1, BL MBB L3-L5 x2 Patient is currently on Aleve prn, Voltaren gel Patient denies any side effects of the medication(s), denies excessive drowsiness or sleepiness, denies suicidal ideation and reports that the current pain medication is helping to control the pain and improve activities of daily living. Patient denies any motor or sensory deficits. Patient denies any fever or night sweats, denies any change in the bowel movements or urination. Physical Examination: -Constitutional: Cooperative. Not in acute distress . - Neurologic: Cranial nerve II to XII intact. No focal neurological deficits. - Psychatric: Alert & oriented x 3. Matching mood & appropriate affect. Judgment and insight intact. - Musculoskeletal: Cervical spine: Muscle bulk/ tone/ strength in the bilateral upper extremities normal Vertebral body tenderness to palpation over Spurling test positive Distraction test positive Facet loading test positive TTP Thoracic spine Muscle bulk / tone/ strength in the bilateral paraspinal muscles normal Vertebral body tender to palpation over Facet loading test positive TTP Lumbar spine: Motor bulk/ tone/ strength lower extremities , thigh and legs : 5/5 Deep tendon reflexes : Normal Knee Jerk. Normal Ankle Jerk . Vertebral body tenderness to palpation over L5 Ram Test positive Lumbar Facet Loading Test positive over BL L4-L5, L5-S1 Straight Leg Raise: positive at 30 degrees right side/ left side Gaenslen's Test positive Sacral spine : Severe tenderness over the Sacroiliac joint: right side / left side Range of motion: Flexion of the lumbar spine <60 degrees Range of motion: Extension of the lumbar spine <20 degrees Gaenslen's Test positive right side / left side Dmitri test: positive right side / left side Thigh Thrust Test positive right side / left side Sacral Thrust Test positive right side / left side Assessment and plan: Chronic LBP secondary to lumbar DDD, spondylosis with facet arthropathy without myelopathy Recommendation of BL RFA L3-L5. May need a series of injections, up until RFA, for optimal pain relief. Risks, benefits of procedure discussed and pt verbalized understanding. Admits to anticoagulant use or medical history of diabetes. Protocol for discontinuation/ continuation of medications bry procedure discussed. Minimal anesthesia provided, if clinically indicated, consisting of Versed and Fentanyl. All questions answered. I have spent less than 30 minutes on patient care today. Dr Quiroga was available by phone for the evaluation of this patient. The time was used to review the medical records including relevant urine studies and Prescription h istory (MAPs), review of the available imaging, evaluation and examination of the patient, coordination of care with the medical staff and if applicable referring physicians, as well as creation of the medical record PQRS Narrative: Hx Alcohol Use (MH) No Home Medications: Ambulatory Orders Atorvastatin [Lipitor] 80 mg PO HS 05/27/20 Calcium Citrate 500 mg PO DAILY 05/27/20 Multivit-Min/FA/Lycopen/Lutein [Centrum Silver Tablet] 1 each PO DAILY 05/27/20 Omeprazole 20 mg PO DAILY 05/27/20 Pioglitazone [Actos] 45 mg PO DAILY 05/27/20 carvediloL [Coreg] 6.25 mg PO BID 05/27/20 lisinopriL [Zestril] 5 mg PO HS 05/27/20 Etanercept [Enbrel] 50 mg SQ MO 06/12/20 Bimatoprost [Lumigan .01% Ophth Soln] 1 drop BOTH EYES HS 04/03/21 Semaglutide [Ozempic] 0.25 mg SQ MO 03/09/23 HYDROcodone/APAP 5-325MG [[place] 5-325] 1 tab PO Q4HR PRN 3 Days #18 tab 06/09/23 Controlled Substance Measures - Controlled Substance Measures Is patient prescribed a controlled substance at discharge?: No
== END ==
LOC: PNWHC3 07-21 09:04
PROVIDERS: ATTEND Specialist
DX: M51.37 Other intervertebral disc degeneration, lumbosacral region (principal); M47.817 Spondylosis without myelopathy or radiculopathy, lumbosacral region; G89.29 Other chronic pain
CPT/HCPCS: 99211

== ENCOUNTER → 2023-09-22 | Outpatient (CLI) | payer MEDICARE, OTHER ==
[2023-09-22 09:57] VITALS: BP 117/68; PULSE 72; RESP 15; TEMP 98.5
--- NOTE | 2023-09-22 14:09 | P.PAINPG ---
PQRS Measure Charge Sheet Comment: A 67 yr old female with a history of severe and chronic LBP secondary to lumbar DDD and spondylosis with facet arthropathy without myelopathy presents today for evaluation s/p BL RFA L3-L5. Pt states she experienced 70 % pain relief s/p procedure. Pain level is provoked at 6 /10 in intensity, constant, localized in the lumbar spine, predominantly axial, dull in character w occasional shooting pain towards the hips. Pain is provoked by bending and carrying. Pain is alleviated with heat, ice, medications, THC products, topical, PT x 7 wks in Jun 2022, sitting, repositioning and rest. Oswestry axial pain score of 13. Interventional pain procedures completed include R SI x2, R TFESI L5-S1 x1, BL RFA L3-L5 (Aug 2023) Patient is currently on Aleve prn, Voltaren gel, THC products Patient denies any side effects of the medication(s), denies excessive drowsiness or sleepiness, denies suicidal ideation and reports that the current pain medication is helping to control the pain and improve activities of daily living. Patient denies any motor or sensory deficits. Patient denies any fever or night sweats, denies any change in the bowel movements or urination. Physical Examination: -Constitutional: Cooperative. Not in acute distress . - Neurologic: Cranial nerve II to XII intact. No focal neurological deficits. - Psychatric: Alert & oriented x 3. Matching mood & appropriate affect. Judgment and insight intact. - Musculoskeletal: Cervical spine: Muscle bulk/ tone/ strength in the bilateral upper extremities normal Vertebral body tenderness to palpation over Spurling test positive Distraction test positive Facet loading test positive TTP Thoracic spine Muscle bulk / tone/ strength in the bilateral paraspinal muscles normal Vertebral body tender to palpation over Facet loading test positive TTP Lumbar spine: Motor bulk/ tone/ strength lower extremities , thigh and legs : 5/5 Deep tendon reflexes : Normal Knee Jerk. Normal Ankle Jerk . Vertebral body tenderness to palpation over L5 Ram Test positive Taut bands w twitch response over R L2-S2 Lumbar Facet Loading Test positive Straight Leg Raise: positive at 30 degrees right side/ left side Gaenslen's Test positive Sacral spine : Severe tenderness over the Sacroiliac joint: right side / left side Range of motion: Flexion of the lumbar spine <60 degrees Range of motion: Extension of the lumbar spine <20 degrees Gaenslen's Test positive right side / left side Dmitri test: positive right side / left side Thigh Thrust Test positive right side / left side Sacral Thrust Test positive right side / left side Assessment and plan: Chronic LBP secondary to lumbar DDD, spondylosis with facet arthropathy without myelopathy Recommendation of R TPIs L2-S2. May need a series of injections for optimal pain relief. Risks, benefits of procedure discussed and pt verbalized understanding. Admits to anticoagulant use or medical history of diabetes. Protocol for discontinuation/ continuation of medications bry procedure discussed. All questions answered. I have spent less than 30 minutes on patient care today. Dr Quiroga was avail able by phone for the evaluation of this patient. The time was used to review the medical records including relevant urine studies and Prescription history (MAPs), review of the available imaging, evaluation and examination of the patient, coordination of care with the medical staff and if applicable referring physicians, as well as creation of the medical record - Pain Location Bilateral Lower Back Non-Pharmacological Interventions: Inactivity, Position/Reposition Pharmacological Interventions: Epidural, Scheduled Medication PQRS Narrative: Hx Alcohol Use (MH) No Home Medications: Ambulatory Orders Atorvastatin [Lipitor] 80 mg PO HS 05/27/20 Calcium Citrate 500 mg PO DAILY 05/27/20 Multivit-Min/FA/Lycopen/Lutein [Centrum Silver Tablet] 1 each PO DAILY 05/27/20 Omeprazole 20 mg PO DAILY 05/27/20 Pioglitazone [Actos] 45 mg PO DAILY 05/27/20 carvediloL [Coreg] 6.25 mg PO BID 05/27/20 lisinopriL [Zestril] 5 mg PO HS 05/27/20 Etanercept [Enbrel] 50 mg SQ MO 06/12/20 Bimatoprost [Lumigan .01% Ophth Soln] 1 drop BOTH EYES HS 04/03/21 Semaglutide [Ozempic] 0.25 mg SQ MO 03/09/23 HYDROcodone/APAP 5-325MG [[place] 5-325] 1 tab PO Q4HR PRN 3 Days #18 tab 09/22/23 Controlled Substance Measures - Controlled Substance Measures Is patient prescribed a controlled substance at discharge?: Yes When asked, does pt state using other controlled substances?: No If prescribed controlled substance>3 days was MAPS reviewed?: Prescribed <3 Days
== END ==
LOC: PNWHC3 08:49
PROVIDERS: ATTEND Specialist
DX: M47.816 Spondylosis without myelopathy or radiculopathy, lumbar region (principal); M51.36 Other intervertebral disc degeneration, lumbar region
CPT/HCPCS: 99211

== ENCOUNTER 2023-10-06 06:19 | Day surgery (SDC) | payer MEDICARE, OTHER ==
[2023-10-06] MEDS ORDERED: LACTATED RINGERS 1,000 ML IV SCH (06:31)
[2023-10-06 06:41] LABS: Glucose,Whole Blood 156 mg/dL (70-110)
[2023-10-06] MEDS ORDERED: ROPIVACAINE 5MG/ML 20ML VIAL ONE (07:04)
[2023-10-06] MEDS ORDERED: methylPREDNISolone ACETATE 40 MG/ML 1 ML VIAL ONE ×2 (07:04)
--- NOTE | 2023-10-06 07:10 | P.PCN ---
Date of Procedure: 10/06/23 Procedure(s) Performed: Procedure= trigger point injections lumbar paraspinal muscles 5 points on the right side from L2 to S1. Preoperative diagnosis= 1-myofascial pain syndrome lumbar paraspinal muscles 2-lumbar degenerative disc disease 3-lumbar facet arthropathy Postoperative diagnosis=Same as preop Diagnosis . Complication = none Condition= stable Anesthesia= none Indication for the procedure= patient complaining of low back pain , examination was positive for multiple trigger point in the lumbar paraspinal muscles on the right side and patient diagnosed with myofascial pain syndrome and is here to have trigger point injections Description of the procedure= procedure risk and benefits discussed with the patient, including but not limited, risk of infection and bleeding, and ALLERGIC reaction to the medication and not complete pain relief and patient agreed with the preceding patient taken to the operating room, placed in sitting position or standard monitors applied to the patient then after induction of anesthesia back prepped with chlorhexidine 3 times , then under sterile technique each of the trigger point that was marked in the preop holding area 5 on the right side lumbar paraspinal muscles ,each one of them injected with the 2 mL of the mixture of ropivacaine 0.5% 10 ML mixed with 40 mg of Depo-Medrol and 2 mL of the mixture injected at each trigger point after negative aspiration, using 25- gauge needle, injection done after negative aspiration under was no paresthesia during the injection patient tolerated the procedure well without any complications and he will follow up in the pain clinic in a few weeks
[2023-10-06 07:21] VITALS: BP 126/79; PULSE 80; RESP 16; TEMP 97.2
== END 2023-10-06 07:28 | disposition home or self-care (01) ==
LOC: ORPAIN 06:19
PROVIDERS: ATTEND Specialist
DX: M79.18 Myalgia, other site (principal); M51.36 Other intervertebral disc degeneration, lumbar region; M47.816 Spondylosis without myelopathy or radiculopathy, lumbar region
CPT/HCPCS: 20553; J2795; J1010

== ENCOUNTER → 2023-11-03 | Outpatient (CLI) | payer MEDICARE, OTHER ==
[2023-11-03 09:54] VITALS: BP 123/66; PULSE 78; RESP 15; TEMP 98.5
--- NOTE | 2023-11-03 14:30 | P.PAINPG ---
Objective - Vital Signs Vital signs: Intake & Output 11/02/23 11/03/23 11/03/23 18:59 06:59 18:59 Weight 61.235 kg PQRS Measure Charge Sheet Comment: A 67 yr old female with a history of severe and chronic LBP secondary to lumbar DDD and spondylosis with facet arthropathy without myelopathy presents today for evaluation s/p R TPIs L2-S2. Pt states she experienced 80 % pain relief x 4 wks s/p procedure. Pain level is provoked at 4 /10 in intensity, constant, localized in the lumbar spine, predominantly axial, dull in character w occasional shooting pain towards the hips. Pain is provoked by bending and carrying. Pain is alleviated with heat, ice, medications, THC products, topical, PT x 7 wks in Jun 2022, sitting, repositioning and rest. Oswestry axial pain score of 13. Interventional pain procedures completed include R SI x2, R TFESI L5-S1 x1, BL RFA L3-L5 (Aug 2023) Patient is currently on Aleve prn, Voltaren gel, THC products Patient denies any side effects of the medication(s), denies excessive drowsiness or sleepiness, denies suicidal ideation and reports that the current pain medication is helping to control the pain and improve activities of daily living. Patient denies any motor or sensory deficits. Patient denies any fever or night sweats, denies any change in the bowel movements or urination. Physical Examination: -Constitutional: Cooperative. Not in acute distress . - Neurologic: Cranial nerve II to XII intact. No focal neurological deficits. - Psychatric: Alert & oriented x 3. Matching mood & appropriate affect. Judgment and insight intact. - Musculoskeletal: Cervical spine: Muscle bulk/ tone/ strength in the bilateral upper extremities normal Vertebral body tenderness to palpation over Spurling test positive Distraction test positive Facet loading test positive TTP Thoracic spine Muscle bulk / tone/ strength in the bilateral paraspinal muscles normal Vertebral body tender to palpation over Facet loading test positive TTP Lumbar spine: Motor bulk/ tone/ strength lower extremities , thigh and legs : 5/5 Deep tendon reflexes : Normal Knee Jerk. Normal Ankle Jerk . Vertebral body tenderness to palpation over L5 Ram Test positive Taut bands w twitch response over R L2-S2 Lumbar Facet Loading Test positive Straight Leg Raise: positive at 30 degrees right side/ left side Gaenslen's Test positive Sacral spine : Severe tenderness over the Sacroiliac joint: right side / left side Range of motion: Flexion of the lumbar spine <60 degrees Range of motion: Extension of the lumbar spine <20 degrees Gaenslen's Test positive right side / left side Dmitri test: positive right side / left side Thigh Thrust Test positive right side / left side Sacral Thrust Test positive right side / left side Assessment and plan: Chronic LBP secondary to lumbar DDD, spondylosis with facet arthropathy without myelopathy Will manage residual pain and may RTC on an as needed basis. All questions answered. I have spent less than 30 minutes on patient care today. Dr Quiroga was available by phone for the evaluation of this patient. The time was used to review the medical records including relevant urine studies and Prescription history (MAPs), review of the available imaging, evaluation and examination of the patient, coordination of care with the medical staff and if applicable referring physicians, as well as creation of the medical record PQRS Narrative: Hx Alcohol Use (MH) No Home Medications: Ambulatory Orders Atorvastatin [Lipitor] 80 mg PO HS 05/27/20 Calcium Citrate 500 mg PO DAILY 05/27/20 Multivit-Min/FA/Lycopen/Lutein [Centrum Silver Tablet] 1 each PO DAILY 05/27/20 Omeprazole 20 mg PO DAILY 05/27/20 Pioglitazone [Actos] 45 mg PO DAILY 05/27/20 carvediloL [Coreg] 6.25 mg PO BID 05/27/20 lisinopriL [Zestril] 5 mg PO HS 05/27/20 Etanercept [Enbrel] 50 mg SQ MO 06/12/20 Bimatoprost [Lumigan .01% Ophth Soln] 1 drop BOTH EYES HS 04/03/21 Semaglutide [Ozempic] 0.25 mg SQ MO 03/09/23 HYDROcodone/APAP 5-325MG [[place] 5-325] 1 tab PO Q4HR PRN 3 Days #18 tab 09/22/23 Controlled Substance Measures - Controlled Substance Measures Is patient prescribed a controlled substance at discharge?: No
== END ==
LOC: PNWHC3 09:23
PROVIDERS: ATTEND Specialist
DX: M51.37 Other intervertebral disc degeneration, lumbosacral region (principal); M47.817 Spondylosis without myelopathy or radiculopathy, lumbosacral region; G89.29 Other chronic pain
CPT/HCPCS: 99211

== ENCOUNTER → 2023-11-17 | Outpatient (CLI) | payer MEDICARE, OTHER ==
--- NOTE | 2023-11-17 20:31 | US ---
EXAMINATION TYPE: US groin LT DATE OF EXAM: 11/17/2023 COMPARISON: NONE CLINICAL INDICATION: Female, 67 years old with history of K40.90 UNIL INGUINAL HERNIA, W/O OBST OR GA NGR, NO; palp area at lt groin x a few months TECHNIQUE: Several images taken at patients palpable area at the inguinal canal superior and lateral to the common femoral vessels. FINDINGS/IMPRESSION: There is a 0.9x0.4x1.1cm benign-appearing nonenlarged lymph node at patients pa lpable area. No cortical thickening. Normal central fatty hilum. No increased color flow. No other ab normality identified. No fluid collections. No hernia identified.
== END | disposition home or self-care (01) ==
LOC: RADUSWWP 09:55
PROVIDERS: ATTEND Internal Medicine
DX: K40.90 Unilateral inguinal hernia, without obstruction or gangrene, not specified as recurrent (principal)

== ENCOUNTER 2024-03-09 06:50 | Day surgery (SDC) | payer MEDICARE, OTHER ==
[2024-03-05 14:55] VITALS: BMI 21.4
[2024-03-09] MEDS: IV FLUID CONTINUATION 1,000 ML IV ONE (07:20)
[2024-03-09] MEDS: LACTATED RINGERS 1,000 ML IV SCH (07:36)
[2024-03-09 07:45] LABS: Glucose,Whole Blood 110 mg/dL (70-110)
[2024-03-09 07:46] VITALS: TEMP 96.3
[2024-03-09] MEDS ORDERED: LIDOCAINE 1% INJ 10MG/ML (20 ML MDV) ONE (07:48)
[2024-03-09] MEDS ORDERED: PROPOFOL 10 MG/ML 20 ML VIAL IV ONE (07:48)
--- NOTE | 2024-03-09 08:10 | P.PCN ---
Date of Procedure: 03/09/24 Procedure(s) Performed: BRIEF HISTORY: Patient is a 68-year-old pleasant white female scheduled for an elective colonoscopy as a part of screening for colon cancer. Her mother was diagnosed with colon cancer at age 46 PROCEDURE PERFORMED: Colonoscopy with snare polypectomy. PREOPERATIVE DIAGNOSIS: Screening for colon cancer and family history of colon cancer. IV sedation per Anesthesia. PROCEDURE: After informed consent was obtained, the patient, was brought into the endoscopy unit. IV sedation was administered by Anesthesia under continuous monitoring. Digital rectal examination was normal. Initially the Olympus CF-160 flexible video colonoscope was then inserted in the rectum, gradually advanced into the sigmoid colon and further advancement was not possible because of acute angulation in this area. The scope was removed and a. Colonoscopy 720 send to the rectum and gradually advanced into the cecum without any difficulty. Careful examination was performed as the scope was gradually being withdrawn. Ileocecal valve and the appendiceal orifice were visualized and appeared normal. Prep was excellent. Mucosa of the cecum, ascending colon appeared normal. The transverse colon there was a 7 mm flat polyp removed by cold snare polypectomy. Rest of, transverse colon, descending colon, sigmoid colon, and rectum appeared normal. Scattered sigmoid diverticulosis. Retroflexion was performed in the rectum and no lesions were seen. The patient tolerated the procedure well. IMPRESSION: 7 mm flat polyp status post cold snare polypectomy Scattered sigmoid diverticulosis 3 to internal hemorrhoids. RECOMMENDATIONS: Findings of this examination were discussed with the patient as well as her family. She was advised to follow with the biopsy results and have repeat colonoscopy in 5 years because of the family history of colon cancer.
[2024-03-09 08:22] VITALS: RESP 16
[2024-03-09 08:36] VITALS: BP 144/77; PULSE 80
== END 2024-03-09 08:59 | disposition home or self-care (01) ==
LOC: ORWHC2ENDO 06:50
PROVIDERS: ATTEND Internal Medicine Gastroenterology
DX: Z12.11 Encounter for screening for malignant neoplasm of colon (principal); D12.3 Benign neoplasm of transverse colon; K57.30 Diverticulosis of large intestine without perforation or abscess without bleeding; K64.8 Other hemorrhoids; I10 Essential (primary) hypertension; E78.5 Hyperlipidemia, unspecified; E11.9 Type 2 diabetes mellitus without complications; K21.9 Gastro-esophageal reflux disease without esophagitis; M06.9 Rheumatoid arthritis, unspecified; M35.00 Sjogren syndrome, unspecified; Z79.899 Other long term (current) drug therapy; Z80.0 Family history of malignant neoplasm of digestive organs; Z90.49 Acquired absence of other specified parts of digestive tract; Z98.890 Other specified postprocedural states
CPT/HCPCS: 88305; 45385; J2001; J2704

== ENCOUNTER → 2024-03-26 | Outpatient (CLI) | payer MEDICARE, OTHER ==
--- NOTE | 2024-03-27 09:39 | MM ---
Reason for Exam: Screening (asymptomatic). Last screening mammogram was performed 12 month(s) ago. Patient History: Menarche at age 15. First Full-Term at age 23. Left ovary removed at age 45. Right ovary removed at age 45. Hysterectomy at age 45. Postmenopausal. Patient has history of breast feeding. Estrogen, starting at age 45 for 1 year. Hormonal Contraceptives, starting at age 21 for 1 year. Benign Excisional Biopsy on the left side. 06/04/2020, Cyst Aspiration on the Right side. 05/06/2006, Cancelled Right US Needle Biopsy on the right side. Risk Values: Chel 5 year model risk: 1.6%. NCI Lifetime model risk: 5.6%. Prior Study Comparison: 04/15/2011 Right Diagnostic Mammogram, [facility]. 07/13/2018 Screening Mammogram, Unknown. 04/23/2020 Screening Mammogram, Unknown. 12/15/2020 Right Diagnostic Mammogram, [facility]. 05/18/2021 Bilateral Diagnostic Mammogram, [facility]. 11/18/2021 Right MG diagnostic mammo RT w CAD, [facility] 03/22/2022 Bilateral MG 3D screening mammo w/cad, [facility]. 03/25/2023 Bilateral MG 3D screening mammo w/cad, [facility]. Tissue Density: The breasts are heterogeneously dense, which may obscure small masses. Findings: Analyzed By CAD. There is no suspicious group of microcalcifications or new suspicious mass in either breast. Overall Assessment: Benign, BI-RAD 2 Management: Screening Mammogram of both breasts in 1 year. . Patient should continue monthly self-breast exams. A clinical breast exam by your physician is recommended on an annual basis. This exam should not preclude additional follow-up of suspicious palpable abnormalities. Note on Chel scores and lifetime risk: 1. A Chel score greater than 3% is considered moderate risk. If this is the case, consider specialist referral to assess eligibility for a risk reducing agent. 2. If overall lifetime risk for the development of breast cancer is 20% or higher, the patient may qualify for future screening with alternating mammogram and breast MRI. [facility], , 03/27/2024 9:36 AM. Electronically signed and approved by: Rashel White M.D. Radiologis
== END | disposition home or self-care (01) ==
LOC: RADMAMWWP 10:51
PROVIDERS: ATTEND Surgery
CPT/HCPCS: 77063; 77067

== ENCOUNTER → 2024-04-23 | Outpatient (CLI) | payer MEDICARE, OTHER ==
--- NOTE | 2024-04-23 17:24 | MR ---
EXAMINATION TYPE: MR hip RT wo con DATE OF EXAM: 04/23/2024 COMPARISON: 04/27/2022 Prior radiograph HISTORY: 78-year-old female M25.511, Right hip pain for over a year TECHNIQUE: Multiplanar, multisequence images of the right hip were obtained without IV contrast. FINDINGS: The hips appear symmetric and intact though with mild joint effusions. These appear relatively symmet crystal from side to side. No evidence for hip fracture or AVN. No paralabral cyst. The SI joints appear symmetric and intact. There may be mild degenerative subarticular signal change on the left. There is some patchy red marrow hyperplasia. No suspicious bone marrow replacement. The rectus femoris origins gluteal insertions, iliopsoas insertions appear normal and intact. There is some intrinsic signal change at the left hamstrings origin suggesting tendinosis or minimal intrasubstance tearing. Right hamstrings origin is intact. There is [id number] degenerative change at the pubic symphysis. Symmetric course, caliber, and signal intensity of the sciatic nerves. There is sigmoid diverticulosis. Uterus surgically absent. No pelvic lymphadenopathy seen. IMPRESSION: 1. No evidence for hip fracture or AVN. 2. Mild symmetric hip joint effusions probably physiologic. 3. Mild degenerative change left SI joint. Mild to moderate degenerative change pubic symphysis. Mild hamstrings origin tendinosis on the left. [facility], , 04/23/2024 5:21 PM
== END | disposition home or self-care (01) ==
LOC: RADMRIMAIN 10:50
PROVIDERS: ATTEND Orthopaedic Surgery

== ENCOUNTER → 2024-07-02 | Outpatient (CLI) | payer MEDICARE, OTHER ==
[2024-07-02 09:30] VITALS: BP 125/75; PULSE 76; RESP 16; TEMP 97.1
--- NOTE | 2024-07-02 16:25 | P.PAINPG ---
Objective - Vital Signs Vital signs: Intake & Output 07/01/24 07/02/24 07/02/24 18:59 06:59 18:59 Weight 52.163 kg PQRS Measure Charge Sheet Comment: A 68 yr old female with a history of severe and chronic LBP secondary to radiculopathy, spondylosis with facet arthropathy without myelopathy presents today for evaluation. Pain level is provoked at 8 /10 in intensity, constant, localized in the lumbar spine, predominantly axial, achy in character without shooting pain. Pain is provoked by sitting, walking, standing for periods > 30 min. Pain is alleviated with heat, ice, medications, THC products, topical, PT x 7 wks in Jun 2022, sitting, repositioning and rest. Interventional pain procedures completed include R SI x2, R TFESI L5-S1 x1, BL RFA L3-L5 (Aug 2023), R TPIs L2-S1 x1 (Sep 2023) Patient is currently on Aleve prn, Voltaren gel, THC products Patient denies any side effects of the medication(s), denies excessive drowsiness or sleepiness, denies suicidal ideation and reports that the current pain medication is helping to control the pain and improve activities of daily living. Patient denies any motor or sensory deficits. Patient denies any fever or night sweats, denies any change in the bowel movements or urination. Physical Examination: -Constitutional: Cooperative. Not in acute distress . - Neurologic: Cranial nerve II to XII intact. No focal neurological deficits. - Psychatric: Alert & oriented x 3. Matching mood & appropriate affect. Judgment and insight intact. - Musculoskeletal: Cervical spine: Muscle bulk/ tone/ strength in the bilateral upper extremities normal Vertebral body tenderness to palpation over Spurling test positive Distraction test positive Facet loading test positive TTP Thoracic spine Muscle bulk / tone/ strength in the bilateral paraspinal muscles normal Vertebral body tender to palpation over Facet loading test positive TTP Lumbar spine: Motor bulk/ tone/ strength lower extremities , thigh and legs : 5/5 Deep tendon reflexes : Normal Knee Jerk. Normal Ankle Jerk . Vertebral body tenderness to palpation over L5 Ram Test positive Taut bands w twitch response over R L2-S2 Lumbar Facet Loading Test positive Straight Leg Raise: positive at 30 degrees right side/ left side Gaenslen's Test positive Sacral spine : Severe tenderness over the Sacroiliac joint: right side / left side Range of motion: Flexion of the lumbar spine <60 degrees Range of motion: Extension of the lumbar spine <20 degrees Gaenslen's Test positive right side / left side Dmitri test: positive right side / left side Thigh Thrust Test positive right side / left side Sacral Thrust Test positive right side / left side Assessment and plan: Chronic LBP secondary to lumbar radiculopathy, spondylosis with facet arthropathy without myelopathy, R Sacroiliitis Recommendation of R SI injection #2. Risks, benefits of procedure discussed and pt verbalized understanding. All questions answered. I have spent less than 30 minutes on patient care today. Dr Quiroga was av ailable by phone for the evaluation of this patient. The time was used to review the medical records including relevant urine studies and Prescription history (MAPs), review of the available imaging, evaluation and examination of the patient, coordination of care with the medical staff and if applicable referring physicians, as well as creation of the medical record - Pain Location Right Lower Back Non-Pharmacological Interventions: Heat, Ice, Inactivity, Position/Reposition Pharmacological Interventions: Block, Epidural, PRN Medication, Topical Medication PQRS Narrative: Hx Alcohol Use (MH) No Home Medications: Ambulatory Orders Atorvastatin [Lipitor] 80 mg PO HS 05/27/20 Calcium Citrate 500 mg PO DAILY 05/27/20 Multivit-Min/FA/Lycopen/Lutein [Centrum Silver Tablet] 1 each PO DAILY 05/27/20 Omeprazole 20 mg PO DAILY 05/27/20 carvediloL [Coreg] 6.25 mg PO BID 05/27/20 lisinopriL [Zestril] 5 mg PO HS 05/27/20 Etanercept [Enbrel] 50 mg SQ MO 06/12/20 Bimatoprost [[place]umigan .01% Ophth Soln] 1 drop BOTH EYES HS 04/03/21 Semaglutide [Ozempic] 0.25 mg SQ FR 03/09/23 HYDROcodone/APAP 5-325MG [[place] 5-325] 1 tab PO Q4HR PRN 3 Days #18 tab 09/22/23 Dapagliflozin Propanediol [Farxiga] 10 mg PO DAILY 03/05/24 Controlled Substance Measures - Controlled Substance Measures Is patient prescribed a controlled substance at discharge?: No
== END ==
LOC: PNWHC3 07:45
PROVIDERS: ATTEND Specialist
DX: M47.26 Other spondylosis with radiculopathy, lumbar region (principal); G89.29 Other chronic pain
CPT/HCPCS: 99211

== ENCOUNTER 2024-07-13 11:42 | Day surgery (SDC) | payer MEDICARE, OTHER ==
[~2024-07-13 11:42] MED LIST changes: -IV FLUID CONTINUATION 1,000 ML IV ONE; -MIDAZOLAM 2 MG/2 ML VIAL ONE; -ROPIVACAINE 5MG/ML 20ML VIAL ONE; -fentaNYL (PF) 50 MCG/ML 2 ML AMP ONE
[2024-07-13 12:34] VITALS: TEMP 98.1
[2024-07-13 12:47] LABS: Glucose,Whole Blood 109 mg/dL (70-110)
[2024-07-13] MEDS ORDERED: ROPIVACAINE 5MG/ML 20ML VIAL ONE (12:48)
[2024-07-13] MEDS ORDERED: methylPREDNISolone ACETATE 40 MG/ML 1 ML VIAL ONE (12:48)
[2024-07-13] MEDS ORDERED: IOPAMIDOL M200 10 ML VIAL ONE (12:48)
--- NOTE | 2024-07-13 12:59 | P.PCN ---
Date of Procedure: 07/13/24 Procedure(s) Performed: Procedure= Right sacroiliac joints steroid injection under fluoroscopy guidance (fluoroscopy image stored on file in the radiology Department ) Preoperative diagnosis= 1- right sacroiliitis 2-right sacroiliac joint dysfunction Postoperative diagnosis=Same as preop Diagnosis . Complication = none Condition= stable Anesthesia= Ropivacaine 0.5% 2 mL for skin and subcu infiltration. Indication for the procedure= patient complaining of low back pain , examination was positive for severe tenderness over the right sacroiliac joints and patient diagnosed with sacroiliitis, for this reason, she was good candidate for right sacroiliac joint steroid injection. Description of the procedure= procedure risk and benefits discussed with the patient, including but not limited, risk of infection and bleeding, and ALLERGIC reaction to the medication and not complete pain relief and patient agreed with the preceding patient taken to the operating room, placed in prone position or standard monitors applied to the patient then after induction of anesthesia back prepped with chlorhexidine 3 times , Then under strict sterile technique, I did the right sacroiliac joint the which was identified under fluoroscopy guidance been local infiltration of the skin and subcu interstitial with ropivacaine 0.5% then 22-gauge Quincke Needle advanced slowly under fluoroscopy and placed in the right sacroiliac joint needle placement confirmed with AP and oblique and lateral view and after appropriate needle placement confirmed and after negative aspiration, or heme , then Ropivacaine 0.5% 3 mL, and 40 mg of Depo-Medrol mixed together and injected in the right sacroiliac joint after negative aspiration patient tolerated the procedure well without any complication.
[2024-07-13 13:05] VITALS: RESP 16
[2024-07-13 13:17] VITALS: BP 138/78; PULSE 78
--- NOTE | 2024-07-13 13:17 | FL ---
Fluoroscopy INDICATION: Pain FINDINGS: Fluoroscopy time: 3 seconds. Total dose area product (DAP) in uGy*m?, mGy*cm? (or similar): 0.39895 Images obtained: 2. Images over the left sacroiliac joint for documentation IMPRESSION: 1. Documentation of fluoroscopy. [facility], Workstation: [facility], 07/13/2024 1:15 PM
== END 2024-07-13 13:20 | disposition home or self-care (01) ==
LOC: ORPAIN 11:42
PROVIDERS: ATTEND Specialist
DX: M46.1 Sacroiliitis, not elsewhere classified (principal)
CPT/HCPCS: Q9966; J2795; J1010; G0260; 27096

== ENCOUNTER → 2024-08-29 | Outpatient (CLI) | payer MEDICARE, OTHER ==
[2024-08-29 07:53] VITALS: BP 117/77; PULSE 96; RESP 16; TEMP 96.9
--- NOTE | 2024-08-29 15:37 | P.PAINPG ---
PQRS Measure Charge Sheet Comment: A 68 yr old female with a history of severe and chronic LBP secondary to radiculopathy, spondylosis with facet arthropathy without myelopathy presents today for evaluation s/p R TFESI L4-L5/ L5-S1 #1. Pt states she experienced >50 % pain relief x last 3 wks s/p procedure. Pt underwent a BL RFA L4/L5/ L5-S1 in Aug 2023 where she experienced 75 % pain relief x 7 mo s/p procedure. Pain level is provoked at 7 /10 in intensity, constant, localized in the lumbar spine, predominantly axial, achy in character without shooting pain. Pain is provoked by sitting, walking, standing for periods > 30 min. Pain is alleviated with heat, ice, medications, THC products, topical, PT x 7 wks in Jun 2022, physician guided exercises every other day since Jun 2022, sitting, repositioning and rest. Interventional pain procedures completed include R SI x3 (May 2025), R TFESI L5- S1 x1, R TFESI L4-L5/ L5-S1 x1, BL RFA L3-L5 (Aug 2023), R TPIs L2-S1 x1 (Sep 2023) Patient is currently on Aleve prn, Voltaren gel, THC products Patient denies any side effects of the medication(s), denies excessive drowsiness or sleepiness, denies suicidal ideation and reports that the current pain medication is helping to control the pain and improve activities of daily living. Patient denies any motor or sensory deficits. Patient denies any fever or night sweats, denies any change in the bowel movements or urination. Physical Examination: -Constitutional: Cooperative. Not in acute distress . - Neurologic: Cranial nerve II to XII intact. No focal neurological deficits. - Psychatric: Alert & oriented x 3. Matching mood & appropriate affect. Judgment and insight intact. - Musculoskeletal: Cervical spine: Muscle bulk/ tone/ strength in the bilateral upper extremities normal Vertebral body tenderness to palpation over Spurling test positive Distraction test positive Facet loading test positive TTP Thoracic spine Muscle bulk / tone/ strength in the bilateral paraspinal muscles normal Vertebral body tender to palpation over Facet loading test positive TTP Lumbar spine: Motor bulk/ tone/ strength lower extremities , thigh and legs : 5/5 Deep tendon reflexes : Normal Knee Jerk. Normal Ankle Jerk . Vertebral body tenderness to palpation over L5 Ram Test positive R L4-L5/ L5-S1 Taut bands w twitch response over R L2-S2 Lumbar Facet Loading Test positive BL L4-L5/ L5-S1 Straight Leg Raise: positive at 30 degrees right side/ left side Gaenslen's Test positive Sacral spine : Severe tenderness over the Sacroiliac joint: right side / left side Range of motion: Flexion of the lumbar spine <60 degrees Range of motion: Extension of the lumbar spine <20 degrees Gaenslen's Test positive right side / left side Dmitri test: positive right side / left side Thigh Thrust Test positive right side / left side Sacral Thrust Test positive right side / left side Assessment and plan: Chronic LBP secondary to lumbar radiculopathy, spondylosis with facet arthropathy without myelopathy, R Sacroiliitis Recommendation of BL RFA L4-L4/ L5-S1. Risks, benefits of procedure discussed and pt verbalized understanding. Protocol for discontinuation/continuation of medication surrounding procedure discussed. Minimal anesthesia including Fentanyl and Versed if clinically indicated. All questions answered. I have spent less than 30 minutes on patient care today. Dr Quiroga was available by phone for the evaluation of this patient. The time was used to review the medical records including relevant urine studies and Prescription history (MAPs), review of the available imaging, evaluation and examination of the patient, coordination of care with the medical staff and if applicable referring physicians, as well as creation of the medical record PQRS Narrative: Hx Alcohol Use (MH) No Home Medications: Ambulatory Orders Atorvastatin [Lipitor] 40 mg PO HS 05/27/20 Multivit-Min/FA/Lycopen/Lutein [Centrum Silver Tablet] 1 each PO DAILY 05/27/20 Omeprazole 20 mg PO DAILY 05/27/20 carvediloL [Coreg] 6.25 mg PO BID 05/27/20 lisinopriL [Zestril] 5 mg PO HS 05/27/20 Etanercept [Enbrel] 50 mg SQ MO 06/12/20 Bimatoprost [[place]um[place] .01% Ophth Soln] 1 drop BOTH EYES HS 04/03/21 Semaglutide [Ozempic] 0.25 mg SQ MO 03/09/23 HYDROcodone/APAP 5-325MG [[place] 5-325] 1 tab PO Q4HR PRN 3 Days #18 tab 09/22/23 Dapagliflozin Propanediol [Farxiga] 10 mg PO DAILY 03/05/24 Alendronate Sodium [Fosamax] 70 mg PO FR 07/10/24 Controlled Substance Measures - Controlled Substance Measures Is patient prescribed a controlled substance at discharge?: No
== END ==
LOC: PNWHC3 07:33
PROVIDERS: ATTEND Specialist
DX: M47.26 Other spondylosis with radiculopathy, lumbar region (principal); M46.1 Sacroiliitis, not elsewhere classified; G89.29 Other chronic pain; F12.90 Cannabis use, unspecified, uncomplicated
CPT/HCPCS: 99212

== ENCOUNTER 2024-09-25 06:00 | Day surgery (SDC) | payer MEDICARE, OTHER ==
[2024-09-21 10:58] VITALS: BMI 20.8
[2024-09-25 06:37] VITALS: TEMP 97.4
[2024-09-25 06:47] LABS: Glucose,Whole Blood 89 mg/dL (70-110)
[2024-09-25] MEDS: IV FLUID CONTINUATION 1,000 ML IV ONE ×3 (06:47→07:29)
[2024-09-25] MEDS ORDERED: LACTATED RINGERS 1,000 ML IV SCH (06:48)
[2024-09-25] MEDS: LACTATED RINGERS 1,000 ML BAG IV STA (06:49)
[2024-09-25] MEDS ORDERED: MIDAZOLAM 2 MG/2 ML VIAL ONE (07:00)
[2024-09-25] MEDS ORDERED: fentaNYL (PF) 50 MCG/ML 2 ML AMP ONE (07:00)
[2024-09-25] MEDS ORDERED: methylPREDNISolone ACETATE 40 MG/ML 1 ML VIAL ONE (07:00)
[2024-09-25] MEDS ORDERED: ROPIVACAINE 5MG/ML 20ML VIAL ONE (07:00)
--- NOTE | 2024-09-25 07:26 | P.PCN ---
Date of Procedure: 09/25/24 Procedure(s) Performed: PREOPERATIVE DIAGNOSIS: 1-Lumbar Spondylosis with Facet Arthropathy without myelopathy. 2- Lumber degenerative disc disease. POSTOPERATIVE DIAGNOSIS: 1- Lumbar Spondylosis with Facet Arthropathy without myelopathy. 2- Lumber degenerative disc disease. PROCEDURES : Bilateral Radiofrequency thermocoagulation, L3 , L4,L5 medial branch, with fluoroscopic guidance (fluoroscopy images in the rad dept) ( to denervate the facet joint at bilateral L4-5 ,and L5-S1 levels ). ANESTHESIA: Moderate sedation with intravenous versed 2 mg and fentaneyl 100 mcg,(sedation start time 07:00 end time 07:22 ). EBL: Minimal PROCEDURE INDICATION: The patient with low back pain secondary to lumbar facet arthropathy who had more than 50% relief of her pain with previous diagnostic lumbar medial branch block with bupivacaine. PROCEDURE DESCRIPTION / TECHNIQUE: The patient was seen and identified in the preoperative area. Risks, benefits, complications, including but not limited to risk of infection ,bleeding , allergic reactions to the medications and no co mplete pain releife , and alternatives were discussed with the patient, the patient agreed to proceed with the procedure and signed the consent. IV was started. Vital signs remained stable throughout the procedure. Patient was taken to the OR and time out was completed. The patient was placed in the prone position on the procedure table. The lumber area was prepped and draped in the usual sterile fashion. . Vital signs were closely monitored during the procedure .IV sedation was used during the procedure to decrease patients anxiety. Using AP and then oblique fluoroscopy, the ``eye of the Wan dog corresponding to the connection between the superior and transverse articular processes of right L3, L4, and L5 were identified, marked, and localized with 1% lidocaine. Subsequently, a 18 guage (VENOM )100-mm radiofrequency cannula with a 10-mm active tip was advanced guided by fluoroscopy to each of the``eyes of the Wan dog at right L3, L4, and L5. Each site then underwent sensory testing at 50 Hz and 0 to 1 volt and motor testing at 2.5 Hz and 0 to 3 volt with local stimulation, but no radicular symptoms down the legs. Thereafter each sites underwent radiofrequency thermocoagulation at 80 degrees celsius for 90 seconds after injecting 0.5 ml of PF Ropivacaine 1ml, then after the thermocoagulation done , 1 ml of the block solution containing Depo-Medrol 20 mg and 3 ml of Ropivacaine 0.5% was injected at the right L3 , L4 , and L5 , levels after negative aspiration of CSF and blood and with no paresthesias. Cannulas were retracted while injecting lidocaine 1% until the needle is out. The same procedure was repeated at the level of Left L3, L4, and L5 levels. At the end of the procedure, the skin was cleansed and bandages were applied. COMPLICATIONS: No acute complications. DISPOSITION / PLANS: The patient was placed in a supine position and transferred to the recovery area in a stable condition for observation and was discharged from the recovery room after meeting discharge criteria. Home discharge instructions given to the patient by the staff. The patient was reexamined prior to discharge. The patient will schedule a follow up in the [facility] in 2-4 weeks.
[2024-09-25 07:33] VITALS: RESP 14
[2024-09-25 07:46] VITALS: BP 102/67; PULSE 81
--- NOTE | 2024-09-25 08:19 | FL ---
EXAMINATION TYPE: FL guided pain mgmt statistic DATE OF EXAM: 09/25/2024 7:30 AM COMPARISON: Pre Operative Images if available both CT/MRI or plain film CLINICAL INDICATION: Female, 68 years old with history of RAD FREQ LUMBAR LEA; TECHNIQUE: FL guided pain mgmt statistic, multiple fluoroscopic images provided for procedure. DAP: 0.98161 mGym2 Gycm2 uGym2 cGycm2 or equivalent. FINDINGS: Fluoroscopic images during injection for pain management demonstrate multilevel degeneration changes throughout the spine. No evidence for fracture. No acute process identified. IMPRESSION: 1. No evidence for intraoperative complication. 2. Please see the operative/procedural note for further details. [facility], , 09/25/2024 8:17 AM
== END 2024-09-25 07:59 | disposition home or self-care (01) ==
LOC: ORPAIN 06:00
PROVIDERS: ATTEND Specialist
DX: M47.816 Spondylosis without myelopathy or radiculopathy, lumbar region (principal); M51.369 Other intervertebral disc degeneration, lumbar region without mention of lumbar back pain or lower extremity pain; E11.9 Type 2 diabetes mellitus without complications; Z79.899 Other long term (current) drug therapy
CPT/HCPCS: 64635; 64636; J2250; J3010; J2795; J1010

== ENCOUNTER → 2024-10-11 | Outpatient (CLI) | payer MEDICARE, OTHER ==
[2024-10-11 09:41] VITALS: BP 123/77; PULSE 92; RESP 16; TEMP 96.9
--- NOTE | 2024-10-11 15:11 | P.PAINPG ---
PQRS Measure Charge Sheet Comment: A 68 yr old female with a history of severe and chronic LBP secondary to radiculopathy, spondylosis with facet arthropathy without myelopathy presents today for evaluation s/p BL RFA L4-L4/ L5-S1. Pt states she experienced 75 % pain relief s/p procedure. Pain level is provoked at 6 /10 in intensity, intermi ttent, localized in the lumbar spine, predominantly axial, achy in character without shooting pain. Pain is provoked by sitting, walking, standing for periods > 30 min. Pain is alleviated with heat, ice, medications, THC products, topical, PT x 7 wks in Jun 2022, physician guided exercises every other day since Jun 2022, sitting, repositioning and rest. Interventional pain procedures completed include R SI x3 (May 2025), R TFESI L5- S1 x1, R TFESI L4-L5/ L5-S1 x1, BL RFA L3-L5 (09/17, 10/19), R TPIs L2-S1 x1 (Sep 2023) Patient is currently on Aleve, Voltaren gel, THC products Patient denies any side effects of the medication(s), denies excessive drowsiness or sleepiness, denies suicidal ideation and reports that the current pain medication is helping to control the pain and improve activities of daily living. Patient denies any motor or sensory deficits. Patient denies any fever or night sweats, denies any change in the bowel movements or urination. Physical Examination: -Constitutional: Cooperative. Not in acute distress . - Neurologic: Cranial nerve II to XII intact. No focal neurological deficits. - Psychatric: Alert & oriented x 3. Matching mood & appropriate affect. Judgment and insight intact. - Musculoskeletal: Cervical spine: Muscle bulk/ tone/ strength in the bilateral upper extremities normal Vertebral body tenderness to palpation over Spurling test positive Distraction test positive Facet loading test positive TTP Thoracic spine Muscle bulk / tone/ strength in the bilateral paraspinal muscles normal Vertebral body tender to palpation over Facet loading test positive TTP Lumbar spine: Motor bulk/ tone/ strength lower extremities , thigh and legs : 5/5 Deep tendon reflexes : Normal Knee Jerk. Normal Ankle Jerk . Vertebral body tenderness to palpation over L5 Ram Test positive R L4-L5/ L5-S1 Taut bands w twitch response over R L2-S2 Lumbar Facet Loading Test positive BL L4-L5/ L5-S1 Straight Leg Raise: positive at 30 degrees right side/ left side Gaenslen's Test positive Sacral spine : Severe tenderness over the Sacroiliac joint: right side / left side Range of motion: Flexion of the lumbar spine <60 degrees Range of motion: Extension of the lumbar spine <20 degrees Gaenslen's Test positive right side / left side Dmitri test: positive right side / left side Thigh Thrust Test positive right side / left side Sacral Thrust Test positive right side / left side Assessment and plan: Chronic LBP secondary to lumbar radiculopathy, spondylosis with facet arthropathy without myelopathy, R Sacroiliitis Recommendation of medication management. Zanaflex 4mg #100 NR Use, side effects, adverse reactions, safe storage discussed. All questions answered. I have spent less than 30 minutes on patient care today. Dr Quiroga was available by phone for the evaluation of this patient. The time was used to review the medical records including relevant urine studies and Prescription history (MAPs), review of the available imaging, evaluation and examination of the patient, coordination of care with the medical staff and if applicable referring physicians, as well as creation of the medical record PQRS Narrative: Hx Alcohol Use (MH) No Home Medications: Ambulatory Orders Atorvastatin [Lipitor] 40 mg PO HS 05/27/20 Multivit-Min/FA/Lycopen/Lutein [Centrum Silver Tablet] 1 each PO DAILY 05/27/20 Omeprazole 20 mg PO DAILY 05/27/20 carvediloL [Coreg] 6.25 mg PO BID 05/27/20 lisinopriL [Zestril] 5 mg PO HS 05/27/20 Etanercept [Enbrel] 50 mg SQ MO 06/12/20 Bimatoprost [Lumigan .01% Ophth Soln] 1 drop BOTH EYES HS 04/03/21 Semaglutide [Ozempic] 0.25 mg SQ MO 03/09/23 HYDROcodone/APAP 5-325MG [[place] 5-325] 1 tab PO Q4HR PRN 3 Days #18 tab 09/22/23 Alendronate Sodium [Fosamax] 70 mg PO FR 07/10/24 Empagliflozin [Jardiance] 1 tab PO DAILY 09/25/24 tiZANidine [Zanaflex] 4 mg PO Q6HR PRN 30 Days #100 tab 10/11/24 Controlled Substance Measures - Controlled Substance Measures Is patient prescribed a controlled substance at discharge?: No
== END ==
LOC: PNWHC3 07:37
PROVIDERS: ATTEND Anesthesiology
DX: M47.26 Other spondylosis with radiculopathy, lumbar region (principal); G89.29 Other chronic pain; M46.1 Sacroiliitis, not elsewhere classified; F12.90 Cannabis use, unspecified, uncomplicated
CPT/HCPCS: 99211